=== PATIENT | male | born 1955 | race Caucasian/White ===

== ENCOUNTER 2017-12-24 16:11 | Observation (INO) ==
[2017-12-24 16:24] VITALS: TEMP 97.5
--- NOTE | 2017-12-24 20:05 | ED ---
HPI General Chief complaint: Neuro Symptoms/Deficit Stated complaint: [facility] Time Seen by Provider: 12/24/17 19:31 History of Present Illness HPI narrative: 62-year-old male with a history of HTN, hypothyroidism, DM, migraines, brain aneurysm s/p stent placement presents to the ED for evaluation of possible stroke. The patient states that he started having dizziness . Describes it as feeling off balance. States that this dizziness has been constant since then however he does have intermittent exacerbations of this dizziness and instability. States that he has had 4-5 falls due to the dizziness, states he has been able to catch himself or landed on something soft and has not injured himself. States that he [facility] this [facility] and they did blood work, chest x-ray and brain MRI. States that he had the MRI done yesterday and was called today and told that the results showed he had a stroke. States [facility] by the [facility] to come [facility] for evaluation of these findings. States that he has had a few migraines this week however they are his typical migraines. He denies any chest pain, abdominal pain, nausea, vomiting, diarrhea. He has numbness and tingling in his hands and feet which is chronic due to diabetic neuropathy. States that he felt as though he had weakness in his right arm last week however this has resolved. He states he has had dyspnea on exertion for the past 6 months that he has been seen for as an outpatient. No other complaints. Related Data Home Medications Medication Instructions Recorded Confirmed aspirin 325 mg PO DAILY 12/24/17 12/24/17 insulin aspart U-100 [Novolog 12 unit SUBCUT BID 12/24/17 12/24/17 PenFill U-100 Insulin] levothyroxine 137 mcg PO DAILY 12/24/17 12/24/17 lisinopril 40 mg PO DAILY 12/24/17 12/24/17 metformin 1,000 mg PO BID 12/24/17 12/24/17 Allergies Allergy/AdvReac Type Severity Reaction Status Date / Time ciprofloxacin Allergy Severe Hives Unverified 12/24/17 16:31 egg Allergy Severe Shortness Unverified 12/24/17 16:31 of Breath grass pollen Allergy Severe difficulty Unverified 12/24/17 16:31 breathing sneezing and itchy eyes stuffed nose Influenza Virus Vaccines Allergy Severe ALLERGIC Unverified 12/24/17 16:31 TO EGGS beta-carotene Allergy Intermediate nosebleeds, Unverified 12/24/17 16:31 very bad diarrhea vitamins A and D Allergy Intermediate nosebleeds, Unverified 12/24/17 16:31 very bad diarrhea ARTIFICIAL SWEETENERS Allergy Severe INSOMNIA, Uncoded 12/24/17 16:31 DYSPNEA Review of Systems ROS: all other systems reviewed are negative [facility] Medical History Medical History Breast cancer in male (Acute) Depression (Acute) Diabetes (Acute) GERD (gastroesophageal reflux disease) (Acute) Hypothyroidism (Acute) Liver disease (Acute) Migraines (Acute) Sleep apnea (Acute) Social History Social History Substance History: No History of Abuse Smoking Status: Never smoker How Often Do You Have a Drink Containing Alcohol: Never Recent Travel in [facility] within the Last 8 Weeks: No Recent Out of Country Travel within the Last 8 Weeks: No Immunization History Tetanus Immunization: >5 Years Exam Narrative Exam Narrative: GENERAL: Well-nourished and well-developed pleasant patient in no acute distress who is nontoxic appearing. SKIN: Warm and dry. HEAD: Normocephalic and atraumatic. EYES: No injection, drainage, or hyphema noted. PERRLA. EOMI. ENT: No nasal drainage noted. Oropharynx is clear and the TMs are normal with good landmarks. NECK: Supple and the trachea is midline. CARDIOVASCULAR: Regular rate and rhythm. RESPIRATORY: Breath sounds are equal bilaterally with no accessory muscle use, wheezing, rhonchi, or crackles. GASTROINTESTINAL: Abdomen is soft, non-tender, and nondistended. MUSCULOSKELETAL: No obvious deformities, swelling, cyanosis, or ecchymosis is present throughout the upper and lower extremities. Patient has full range of motion without any signs of neurovascular compromise. Distal pulses are 2+ throughout. Strength 5/5 upper and lower extremities and equal bilaterally. NEUROLOGICAL: Awake, alert, and oriented. Normal speech. Patient noted to lose his balance and fall to the left twice while walking only 15 feet. Cranial nerves are grossly intact. Course Initial Documented Vital Signs Temperature 97.5 F L 12/24/17 16:22 Pulse Rate 81 12/24/17 16:22 Respiratory Rate 22 12/24/17 16:22 Blood Pressure 139/67 12/24/17 16:22 Pulse Oximetry 98 12/24/17 16:22 Last Documented Vital Signs Temperature 97.5 F L 12/24/17 16:22 Pulse Rate 86 12/24/17 22:22 Respiratory Rate 19 12/24/17 22:22 Blood Pressure 141/67 H 12/24/17 22:22 Pulse Oximetry 96 12/24/17 22:22 Medical Decision Making MDM Narrative Medical decision making narrative: 62-year-old male presents to the emergency department for evaluation of dizziness and possible stroke. Patient is afebrile , vital signs are stable. Patient had outpatient workup for dizziness by his PCP at the [facility], had an MRI yesterday and told that it showed stroke and to come to the emergency department. No focal neurologic deficits. Patient does not have any of these records with him and we are unable to obtain them at this time as it is 8:00 at night. IV access is obtained, labs have been drawn and sent. Patient is placed on cardiac telemetry and pulse oximetry monitoring. MRI of brain ordered and is pending. CBC shows mild anemia with hemoglobin 12.8, hematocrit 36.2 and thrombocytopenia with platelets 127. Coags are unremarkable. CMP is unremarkable. Troponin is less than 0.02. Chest x-ray is negative. Patient was initially sent for MRI however per patient he has a coil and a stent in his aneurysm and the card that he presented is only for his coil. Per radiologist he is not authorized to have an MRI until the records are obtained from the [facility] regarding his aneurysm stent. Therefore head CT has been ordered instead. Patient will be admitted for stroke workup. I spoke with Dr. Mckenzie [facility] who accepts patient to his service. Medical Screen Exam Complete: Yes Emergency Medical Condition: Yes Differential Diagnosis Differential Diagnosis: CVA versus intracranial hemorrhage versus electrolyte abormality Lab Data Result diagrams: 12/24/17 20:20 12/24/17 20:20 Lab Results 12/24/17 12/24/17 12/24/17 Range/Units 20:20 20:20 20:20 WBC 4.7 (4.0-11.0) th/mm3 RBC 3.79 L (4.50-5.90) mil/mm3 Hgb 12.8 L (13.0-17.0) gm/dL Hct 36.2 L (39.0-51.0) % MCV 95.5 (80.0-100.0) fL MCH 33.8 (27.0-34.0) pg MCHC 35.4 (32.0-36.0) % RDW 15.1 (11.6-17.2) % Plt Count 127 L (150-450) th/mm3 MPV 8.2 (7.0-11.0) fL Neut % (Auto) 56.5 (16.0-70.0) % Lymph % (Auto) 30.2 (9.0-44.0) % Carroll % (Auto) 9.0 H (0.0-8.0) % Eos % (Auto) 3.1 (0.0-4.0) % Baso % (Auto) 1.2 (0.0-2.0) % Neut # (Auto) 2.7 (1.8-7.7) th/mm3 Lymph # (Auto) 1.4 (1.0-4.8) th/mm3 Carroll # (Auto) 0.4 (0.0-0.9) th/mm3 Eos # (Auto) 0.1 (0.0-0.4) th/mm3 Baso # (Auto) 0.1 (0.0-0.2) th/mm3 WBC Differential . Differential Comment Auto diff final PT 11.4 (9.8-11.6) sec INR 1.1 Ratio APTT 29.4 (23.4-31.7) sec Sodium 145 (136-145) meq/L Potassium 3.6 (3.5-5.1) meq/L Chloride 111 H (98-107) meq/L Carbon Dioxide 27.0 (21.0-32.0) meq/L Anion Gap 7 (5-15) meq/L BUN 6 L (7-18) mg/dL Creatinine 0.78 (0.60-1.30) mg/dL Estimated GFR Greater than 89 (>89) mL/min Random Glucose 158 H (74-106) mg/dL Calcium 8.8 (8.5-10.1) mg/dL Total Bilirubin 0.7 (0.2-1.0) mg/dL AST 62 H (15-37) U/L ALT 39 (12-78) U/L Alkaline Phosphatase 115 (45-117) U/L Total Creatine Kinase 87 (39-308) U/L Troponin I Less than 0.02 L (0.02-0.05) ng/mL Total Protein 8.0 (6.4-8.2) g/dL Albumin 3.4 (3.4-5.0) g/dL Imaging Data Radiologist's impression: Chest X-Ray 12/24/17 20:03 CONCLUSION: No evidence of acute cardiopulmonary disease. Head CT 12/24/17 21:45 CONCLUSION: 1. Negative noncontrast head CT. . Discharge Plan Discharge Disposition Patient Disposition: 30 Still Patient Discharge Details Diagnosis: Dizziness Physicians Team ED Provider: Giovanni De La Fuente ED Midlevel Provider: Yojana [place] Primary Care Provider: [facility] /Orders / Referrals /Forms Prescriptions: No Action aspirin 325 mg Tablet 325 mg PO DAILY RF: 0 metformin 1,000 mg Tablet 1,000 mg PO BID RF: 0 insulin aspart U-100 [Novolog PenFill U-100 Insulin] 100 unit/mL Cartridge 12 unit SUBCUT BID RF: 0 levothyroxine 137 mcg Capsule 137 mcg PO DAILY RF: 0 lisinopril 40 mg PO DAILY RF: 0 Discharge Interventions Interventions: Vital Signs Last Done: 12/24/17 22:22 Status ED Status: With Doctor
--- NOTE | 2017-12-24 20:25 | XR ---
EXAM DATE: 12/24/2017 8:21 PM EST AGE/SEX: 62 years / Male INDICATIONS: Shortness of breath CLINICAL DATA: This is the patient's initial encounter. Patient reports that signs and symptoms have been present for 1 week and indicates a pain score of 0/10. MEDICAL/SURGICAL HISTORY: None. None. COMPARISON: No prior exams available for comparison. FINDINGS: A single AP view of the chest demonstrates the lungs to be symmetrically aerated without evidence of mass, infiltrate or effusion. The cardiomediastinal contours are unremarkable. Osseous structures a re intact. CONCLUSION: No evidence of acute cardiopulmonary disease. Electronically signed by: Braydon Young MD 12/24/2017 8:24 PM EST
[2017-12-24 20:35] LABS: Baso # (Auto) 0.1 th/mm3 (0.0-0.2); Baso % (Auto) 1.2 % (0.0-2.0); Eos # (Auto) 0.1 th/mm3 (0.0-0.4); Eos % (Auto) 3.1 % (0.0-4.0); Hematocrit 36.2 % (39.0-51.0); Hemoglobin 12.8 gm/dL (13.0-17.0); Lymph # (Auto) 1.4 th/mm3 (1.0-4.8); Lymph % (Auto) 30.2 % (9.0-44.0); Mean Corpuscular HGB Conc 35.4 % (32.0-36.0); Mean Corpuscular Hemoglobin 33.8 pg (27.0-34.0); Mean Corpuscular Volume 95.5 fL (80.0-100.0); Mean Platelet Volume 8.2 fL (7.0-11.0); Mono # (Auto) 0.4 th/mm3 (0.0-0.9); Neut # (Auto) 2.7 th/mm3 (1.8-7.7); Neut % (Auto) 56.5 % (16.0-70.0); Platelet Count 127 th/mm3 (150-450); Red Blood Count 3.79 mil/mm3 (4.50-5.90); Red Cell Distribution Width 15.1 % (11.6-17.2); White Blood Count 4.7 th/mm3 (4.0-11.0)
[2017-12-24 20:47] LABS: Activated Partial Thrombo Time 29.4 sec (23.4-31.7); INR 1.1 Ratio; Prothrombin Time 11.4 sec (9.8-11.6)
[2017-12-24 21:05] LABS: Albumin 3.4 g/dL (3.4-5.0); Anion Gap 7 meq/L (5-15); Aspartate Aminotransferase 62 U/L (15-37); Blood Urea Nitrogen 6 mg/dL (7-18); Calcium 8.8 mg/dL (8.5-10.1); Chloride 111 meq/L (98-107); Glomerular Filtration Rate Greater Than 89 mL/min (>89); Glucose,Random 158 mg/dL (74-106); Potassium 3.6 meq/L (3.5-5.1); Sodium 145 meq/L (136-145)
[2017-12-24 21:10] LABS: Alanine Aminotransferase 39 U/L (12-78); Alkaline Phosphatase 115 U/L (45-117)
[2017-12-24 21:14] LABS: Creatine Kinase 87 U/L (39-308)
--- NOTE | 2017-12-24 22:18 | CT ---
EXAM DATE: 12/24/2017 10:11 PM EST AGE/SEX: 62 years / Male INDICATIONS: Right sided cephalgia, dizziness. CLINICAL DATA: This is the patient's initial encounter. Patient reports that signs and symptoms have been present for 1 day and indicates a pain score of 7/10. MEDICAL/SURGICAL HISTORY: Carcinoma, breast. Gastroesophageal reflux disease. Liver disease. Non e. RADIATION DOSE: 56.35 CTDI (mGy) COMPARISON: No prior exams available for comparison. TECHNIQUE: CT of the head without contrast. Using automated exposure control and adjustment of the mA and/or kV according to patient size, radiation dose was kept as low as reasonably achievable to ob tain optimal diagnostic quality images. DICOM format image data is available electronically for revi ew and comparison. FINDINGS: Cerebrum: The ventricles are normal for age. No evidence of midline shift, mass lesion, hemorrhage or acute infarction. No extraaxial fluid collections are seen. Posterior Fossa: The cerebellum and brainstem are intact. The 4th ventricle is midline. The cerebe llopontine angle is unremarkable. Extracranial: The visualized portion of the orbits is intact. Skull: The calvaria is intact. No evidence of skull fracture. CONCLUSION: 1. Negative noncontrast head CT. . Electronically signed by: Nehemias Hernandez MD 12/24/2017 10:17 PM EST
[2017-12-24] MEDS ORDERED: Insulin NovoLOG Aspart Correctional Sugar Inj SQ PRN (22:58)
[2017-12-24] MEDS ORDERED: Dextrose 50% in Water 50 ML Vial IV.PUSH PRN (22:58)
[2017-12-25 04:24] LABS: Amphetamine Screen,Urine Neg (Neg); Barbiturate Screen,Urine Neg (Neg); Cannabinoid Screen,Urine Neg (Neg); Cocaine Screen,Urine Neg (Neg)
[2017-12-25 04:26] LABS: Opiate Screen,Urine Neg (Neg)
--- NOTE | 2017-12-25 05:43 | P.HPIM ---
History of Present Illness Primary Care Physician: [facility] History of Present Illness: 62-year-old transgender male (biologic female) with history of hypertension, hypothyroidism, diabetes mellitus, migraines, brain aneurysm status post stent who presents with a 2-week history of intermittent right-sided weakness, feeling off balance, falling towards the right. He denies any fevers, chills, chest pain, shortness of breath. He was seen by his primary care last week, had an MRI reportedly done on 12/23, and was called by primary care on 12/24 to inform him that MRI was positive for stroke and he should present to ER. We do not have results of MRI at this time. Patient reports that right-sided weakness has resolved, however still feels that he gets this intermittently. Patient takes angiogenic hormones, however over the past week has not been taking this secondary to symptoms of feeling off balance. Review of Systems All other systems reviewed negative except as stated in HPI PMFSH - History History Provided By: Patient - Medical History Medical History: Medical History (Last Updated 12/25/17 @ 05:41 by Terrence Mckenzie MD) Breast cancer in male Depression Diabetes GERD (gastroesophageal reflux disease) Hypothyroidism Liver disease Migraines Sleep apnea Venous insufficiency Venous insufficiency (chronic) (peripheral) - Surgical History Surgical History: Surgical History (Last Reviewed 12/25/17 @ 05:37 by Terrence Mckenzie MD) History of bilateral tubal ligation History of cholecystectomy - Family History Family History: Family History (Last Updated 12/25/17 @ 05:36 by Terrence Mckenzie MD) Father Trigeminal neuralgia Mother Diabetes - Social History I have reviewed the patient's Social History: Yes - Tobacco History Smoking Status: Never smoker - Alcohol History How Often Do You Have a Drink Containing Alcohol: Never - Substance Use History Substance History: No History of Abuse - Travel History Recent Travel in the [place] Within the Last 8 Weeks: No Recent Travel Out of the Country Within the Last 8 Weeks: No - Immunization History Tetanus Immunization: >5 Years Medications and Allergies Active Medications: Active Medications Aspirin (Aspirin Chew) 81 mg PO DAILY YUSRA Dextrose (D50w Vial) 50 ml IV.PUSH UNSCH PRN PRN Reason: per Hypoglycemic Protocol Glucagon (Glucagon Inj) 1 mg OTHER UNSCH PRN PRN Reason: per Hypoglycemic Protocol Insulin Aspart (Novolog Insulin Correctional Sugar Inj) 0 unit SQ ACHS PRN; Protocol PRN Reason: Per Protocol Sodium Chloride (Ns Flush) 2 ml IV.FLUSH PRN PRN PRN Reason: FLUSH AFTER USING IV ACCESS Allergies Allergy/AdvReac Type Severity Reaction Status Date / Time ciprofloxacin Allergy Severe Hives Unverified 12/24/17 16:31 egg Allergy Severe Shortness Unverified 12/24/17 16:31 of Breath grass pollen Allergy Severe difficulty Unverified 12/24/17 16:31 breathing sneezing and itchy eyes stuffed nose Influenza Virus Vaccines Allergy Severe ALLERGIC Unverified 12/24/17 16:31 TO EGGS beta-carotene Allergy Intermediate nosebleeds, Unverified 12/24/17 16:31 very bad diarrhea vitamins A and D Allergy Intermediate nosebleeds, Unverified 12/24/17 16:31 very bad diarrhea ARTIFICIAL SWEETENERS Allergy Severe INSOMNIA, Uncoded 12/24/17 16:31 DYSPNEA Home Medications Medication Instructions Recorded Confirmed Type aspirin 325 mg PO DAILY 12/24/17 12/24/17 History insulin aspart U-100 [Novolog 12 unit SUBCUT BID 12/24/17 12/24/17 History PenFill U-100 Insulin] levothyroxine 137 mcg PO DAILY 12/24/17 12/24/17 History lisinopril 40 mg PO DAILY 12/24/17 12/24/17 History metformin 1,000 mg PO BID 12/24/17 12/24/17 History Exam Vital signs: Vital Signs 12/24/17 16:22 12/24/17 19:33 12/24/17 20:03 Temperature 97.5 F L Pulse Rate 81 80 Respiratory Rate 22 19 Blood Pressure 139/67 153/72 H Pulse Oximetry 98 99 96 12/24/17 22:22 12/25/17 02:38 12/25/17 04:55 Temperature Pulse Rate 86 83 Respiratory Rate 19 16 Blood Pressure 141/67 H 154/68 H 140/67 Pulse Oximetry 96 95 Intake & Output 12/24/17 12/24/17 12/25/17 06:59 18:59 06:59 Weight 118.388 kg Narrative: GENERAL: Patient sitting up in bed. Sleeping, wakes up for exam. Alert and oriented x3. SKIN: Warm and dry. HEAD: Atraumatic. Normocephalic. EYES: Pupils equal and round. No scleral icterus. No injection or drainage. ENT: No nasal bleeding or discharge. Mucous membranes pink and moist. NECK: Trachea midline. No JVD. CARDIOVASCULAR: Regular rate and rhythm. RESPIRATORY: No accessory muscle use. Clear to auscultation. Breath sounds equal bilaterally. GASTROINTESTINAL: Abdomen soft, non-tender, nondistended. Hepatic and splenic margins not palpable. MUSCULOSKELETAL: Extremities without clubbing, cyanosis, or edema. No obvious deformities. NEUROLOGICAL: Awake and alert. No obvious cranial nerve deficits. Motor grossly within normal limits. Five out of 5 muscle strength in the arms and legs. There is no unilateral weakness. Normal speech. PSYCHIATRIC: Appropriate mood and affect; insight and judgment normal. Results - Labs CBC & Chem 7: 12/24/17 20:20 12/24/17 20:20 Labs: Short CBC 12/24/17 Range/Units 20:20 WBC 4.7 (4.0-11.0) th/mm3 Hgb 12.8 L (13.0-17.0) gm/dL Hct 36.2 L (39.0-51.0) % Plt Count 127 L (150-450) th/mm3 BMP 12/24/17 20:20 Sodium 145 Potassium 3.6 Chloride 111 H Carbon Dioxide 27.0 BUN 6 L Creatinine 0.78 Calcium 8.8 Cardiac Enzymes 12/24/17 Range/Units 20:20 Total Creatine Kinase 87 (39-308) U/L Troponin I Less than 0.02 L (0.02-0.05) ng/mL Liver Function 12/24/17 Range/Units 20:20 Total Bilirubin 0.7 (0.2-1.0) mg/dL AST 62 H (15-37) U/L ALT 39 (12-78) U/L Alkaline Phosphatase 115 (45-117) U/L Albumin 3.4 (3.4-5.0) g/dL - Imaging Impressions Chest X-Ray 12/24/17 20:03 CONCLUSION: No evidence of acute cardiopulmonary disease. Head CT 12/24/17 21:45 CONCLUSION: 1. Negative noncontrast head CT. . Caprini VTE Risk Assessment Caprini VTE Risk Assessment: Moderate/High Risk (score >= 2) Caprini Risk Assessment Model: Point Value = 1 Point Value = 2 Point Value = 3 Point Value = 5 Age 41-60 Minor surgery BMI > 25 kg/m2 Swollen legs Varicose veins or History of unexplained or recurrent spontaneous Oral contraceptives or hormone replacement Sepsis (< 1 month) Serious lung disease, including pneumonia (< 1 month) Abnormal pulmonary function Acute myocardial infarction Congestive heart failure (< 1 month) History of inflammatory bowel disease Medical patient at bed rest Age 61-74 Arthroscopic surgery Major open surgery (> 45 min) Laparoscopic surgery (> 45 min) Malignancy Confined to bed (> 72 hours) Immobilizing plaster cast Central venous access Age >= 75 History of VTE Family history of VTE Factor V Leiden Prothrombin [id number] Lupus anticoagulant Anticardiolipin antibodies Elevated serum homocysteine Heparin-induced thrombocytopenia Other congenital or acquired thrombophilia Stroke (< 1 month) Elective arthroplasty Hip, pelvis, or leg fracture Acute spinal cord injury (< 1 month) Prophylaxis Regimen: Total Risk Factor Score Risk Level Prophylaxis Regimen 0-1 Low Early ambulation 2 Moderate Order ONE of the following: *Sequential Compression Device (SCD) *Heparin 5000 units SQ BID 3-4 Higher Order ONE of the following medications: *Heparin 5000 units SQ TID *Enoxaparin/Lovenox 40 mg SQ daily (WT < 150 kg, CrCl > 30 mL/min) *Enoxaparin/Lovenox 30 mg SQ daily (WT < 150 kg, CrCl > 10-29 mL/min) *Enoxaparin/Lovenox 30 mg SQ BID (WT < 150 kg, CrCl > 30 mL/min) AND/OR *Sequential Compression Device (SCD) 5 or more Highest Order ONE of the following medications: *Heparin 5000 units SQ TID (Preferred with Epidurals) *Enoxaparin/Lovenox 40 mg SQ daily (WT < 150 kg, CrCl > 30 mL/min) *Enoxaparin/Lovenox 30 mg SQ daily (WT < 150 kg, CrCl > 10-29 mL/min) *Enoxaparin/Lovenox 30 mg SQ BID (WT < 150 kg, CrCl > 30 mL/min) AND *Sequential Compression Device (SCD) Assessment and Plan - Plan //Suspected stroke //Reported right sided weakness With MRI reportedly as outpatient showing acute stroke -Head CT here with no acute findings. -Neuro checks, permissive hypertension. -Check echo, carotid ultrasound. Patient reporting right-sided weakness, however none elicited on exam. -Continue daily aspirin. -Consult neurology. We need to get results of outpatient MRI. //Diabetes mellitus. Chronic. Diabetic diet and insulin sliding scale. A1c pending. //Hypothyroidism. Chronic. Continue home medication. Check TSH. //Hypertension. Chronic. Permissive hypertension. //Mild thrombocytopenia and mild anemia. Uncertain chronicity. Monitor Discussed Condition With: Patient, nurse, ED physician.
[2017-12-25 07:37] LABS: Chol/HDL Ratio 4.93 Ratio; HDL Cholesterol 21.5 mg/dL (40.0-60.0); Thyroid Stimulating Hormone 1.81 uIU/mL (0.358-3.740)
[2017-12-25] MEDS ORDERED: Aspirin 325 MG Tablet PO SCH (09:00)
[2017-12-25] MEDS ORDERED: Levothyroxine 112 MCG Tablet PO SCH (09:00)
--- NOTE | 2017-12-25 09:02 | US ---
EXAM DATE: 12/25/2017 8:59 AM EST AGE/SEX: 62 years / Male INDICATIONS: Transischemic attack. CLINICAL DATA: This is the patient's initial encounter. Patient reports that signs and symptoms have been present for 1 day and indicates a pain score of 0/10. MEDICAL/SURGICAL HISTORY: . Carcinoma, breast. Gastroesophageal reflux disease. Liver disease. None. COMPARISON: . VELOCITY PARAMETERS: ICA/CCA Ratio: Right 1.1 , Left 0.7 ICA: Right 71 cm/sec, Left 59 cm/sec CCA: Right 66 cm/sec, Left 91 cm/sec ECA: Right 72 cm/sec, Left 73 cm/sec Vertebral: Right 23 cm/sec antegrade, Left 44 cm/sec antegrade FINDINGS: Antegrade flow is seen in both vertebral arteries. There is mild atherosclerotic plaquing at the orig in of both ICAs without any significant stenosis. Elevated flow velocities and ICA/CCA ratios have been found to correlate with increased degrees of vessel stenosis, calculated as percentage of diameter relative to a normal segment of distal ICA. CONCLUSION: No evidence for hemodynamically significant stenosis. Electronically signed by: Juan Oliva MD 12/25/2017 9:00 AM EST
[2017-12-25] MEDS ORDERED: Gadobutrol PF 2 MMOL/2 ML Vial (for RAD) IV.SIG ONE (09:10)
--- NOTE | 2017-12-25 09:15 | MR ---
EXAM DATE: 12/25/2017 9:09 AM EST AGE/SEX: 62 years / Male INDICATIONS: CVA. Dizziness. CLINICAL DATA: This is the patient's subsequent encounter. Patient reports that signs and symptoms h ave been present for 2 weeks and indicates a pain score of 0/10. MEDICAL/SURGICAL HISTORY: Carcinoma, breast. Diabetes. Hypertension. GERD. Brain aneurysm. Cholecystectomy. Mastectomy, bilateral. Tubal ligation. Tonsillectomy. ICA stent and coil. COMPARISON: [facility] – [place], CT HEAD W/O CONTRAST, 12/24/2017. . TECHNIQUE: Multiplanar, multisequence examination of the brain was performed without and with 12 ml G adavist (gadobutrol) contrast as a single exam dose. FINDINGS: Cerebrum: The ventricles are normal for age. No evidence of midline shift, mass lesion, hemorrhage or acute infarction. No extraaxial fluid collections are seen. The pituitary gland and suprasellar cistern are normal in configuration. White Matter: No significant signal abnormalities are seen in the white matter. Posterior Fossa: The cerebellum and brainstem are intact. The 4th ventricle is midline. The cerebel lopontine angle is unremarkable. The cerebellar tonsils are normal in position. Diffusion Imaging: No focal areas of restricted diffusion are seen. No evidence of acute infarction . Extracranial: The visualized portions of the orbits and paranasal sinuses are unremarkable. Post Contrast: No abnormal areas of parenchymal or dural enhancement. No evidence of blood-brain ba rrier breakdown. CONCLUSION: Negative MR Brain with and without contrast. Electronically signed by: Fili Varghese MD 12/25/2017 9:13 AM EST
--- NOTE | 2017-12-25 09:29 | P.CONNEU ---
History of Present Illness Service: Neurology Primary Care Provider: [facility] Chief Complaint: Stroke History of Present Illness: 62-year-old male admitted for possible stroke. States felt lightheaded off balance for the past 2 weeks states he was told by the [place] that he had a small stroke. Denies any focal weakness chronic numbness in his legs from diabetes as well as swelling. He is a cane for ambulation. Goes to [facility] for his medical care. Denies any head or neck trauma. No radicular symptoms. He lives with his Review of Systems All other systems reviewed negative except as stated in HPI PMFSH - History History Provided By: Patient - Medical History Medical History: Medical History (Last Reviewed 12/25/17 @ 08:30 by Juliana Denney) Breast cancer in male Depression Diabetes GERD (gastroesophageal reflux disease) Hypothyroidism Liver disease Migraines Sleep apnea Venous insufficiency Venous insufficiency (chronic) (peripheral) - Surgical History Surgical History: Surgical History (Last Reviewed 12/25/17 @ 08:30 by Juliana Denney) History of bilateral tubal ligation History of cholecystectomy - Family History Family History: Family History (Last Updated 12/25/17 @ 05:36 by Terrence Mckenzie MD) Father Trigeminal neuralgia Mother Diabetes - Tobacco History Smoking Status: Never smoker - Alcohol History How Often Do You Have a Drink Containing Alcohol: Never - Substance Use History Substance History: No History of Abuse - Travel History Recent Travel in the [place] Within the Last 8 Weeks: No Recent Travel Out of the Country Within the Last 8 Weeks: No - Immunization History Tetanus Immunization: >5 Years Medications and Allergies Active Medications: Active Medications Aspirin (Aspirin) 325 mg PO DAILY YUSRA Dextrose (D50w Vial) 50 ml IV.PUSH UNSCH PRN PRN Reason: per Hypoglycemic Protocol Glucagon (Glucagon Inj) 1 mg OTHER UNSCH PRN PRN Reason: per Hypoglycemic Protocol Insulin Aspart (Novolog Insulin Correctional Sugar Inj) 0 unit SQ ACHS PRN; Protocol PRN Reason: Per Protocol Levothyroxine Sodium (Synthroid) 112 mcg PO DAILY@0600 YUSRA Levothyroxine Sodium (Synthroid) 25 mcg PO DAILY@0600 YUSRA Sodium Chloride (Ns Flush) 2 ml IV.FLUSH PRN PRN PRN Reason: FLUSH AFTER USING IV ACCESS Allergies Allergy/AdvReac Type Severity Reaction Status Date / Time ciprofloxacin Allergy Severe Hives Unverified 12/24/17 16:31 egg Allergy Severe Shortness Unverified 12/24/17 16:31 of Breath grass pollen Allergy Severe difficulty Unverified 12/24/17 16:31 breathing sneezing and itchy eyes stuffed nose Influenza Virus Vaccines Allergy Severe ALLERGIC Unverified 12/24/17 16:31 TO EGGS beta-carotene Allergy Intermediate nosebleeds, Unverified 12/24/17 16:31 very bad diarrhea vitamins A and D Allergy Intermediate nosebleeds, Unverified 12/24/17 16:31 very bad diarrhea ARTIFICIAL SWEETENERS Allergy Severe INSOMNIA, Uncoded 12/24/17 16:31 DYSPNEA Home Medications Medication Instructions Recorded Confirmed Type aspirin 325 mg PO DAILY 12/24/17 12/24/17 History insulin aspart U-100 [Novolog 12 unit SUBCUT BID 12/24/17 12/24/17 History PenFill U-100 Insulin] levothyroxine 137 mcg PO DAILY 12/24/17 12/24/17 History lisinopril 40 mg PO DAILY 12/24/17 12/24/17 History metformin 1,000 mg PO BID 12/24/17 12/24/17 History Exam Vital signs: Vital Signs 12/24/17 16:22 12/24/17 19:33 12/24/17 20:03 Temperature 97.5 F L Pulse Rate 81 80 Respiratory Rate 22 19 Blood Pressure 139/67 153/72 H Pulse Oximetry 98 99 96 12/24/17 22:22 12/25/17 02:38 12/25/17 04:55 Temperature Pulse Rate 86 83 Respiratory Rate 19 16 Blood Pressure 141/67 H 154/68 H 140/67 Pulse Oximetry 96 95 Intake & Output 12/24/17 12/25/17 12/25/17 18:59 06:59 18:59 Weight 118.388 kg Narrative: Awake alert oriented x3 obese, follows motor request looks well was using his cell phone with his right hand when he came in to see him smiling visual zelaya full no facial asymmetry able to raise all 4 extremity gravity, no pronator drift, lower extremity bilateral pitting edema bandages on reduce pinprick lower limbs reflexes trace plantarflexion no clonus elicited gait not assessed secondary fall risk - Constitutional no acute distress - Routine HEENT Exam Head: Present: normocephalic Eye: Present: EOMI Results - Labs CBC & Chem 7: 12/24/17 20:20 12/24/17 20:20 Labs: Laboratory Results - last 24 hr 12/24/17 12/24/17 12/24/17 20:20 20:20 20:20 WBC 4.7 RBC 3.79 L Hgb 12.8 L Hct 36.2 L MCV 95.5 MCH 33.8 MCHC 35.4 RDW 15.1 Plt Count 127 L MPV 8.2 Neut % (Auto) 56.5 Lymph % (Auto) 30.2 [place] % (Auto) 9.0 H Eos % (Auto) 3.1 Baso % (Auto) 1.2 Neut # (Auto) 2.7 Lymph # (Auto) 1.4 [place] # (Auto) 0.4 Eos # (Auto) 0.1 Baso # (Auto) 0.1 WBC Differential . Differential Comment Auto diff final PT 11.4 INR 1.1 APTT 29.4 Sodium 145 Potassium 3.6 Chloride 111 H Carbon Dioxide 27.0 Anion Gap 7 BUN 6 L Creatinine 0.78 Estimated GFR Greater than 89 Random Glucose 158 H Calcium 8.8 Total Bilirubin 0.7 AST 62 H ALT 39 Alkaline Phosphatase 115 Total Creatine Kinase 87 Troponin I Less than 0.02 L Total Protein 8.0 Albumin 3.4 Triglycerides Cholesterol LDL Cholesterol, Calc HDL Cholesterol Cholesterol/HDL Ratio TSH Urine Opiates Screen Ur Barbiturates Screen Ur Amphetamines Screen U Benzodiazepines Scrn Urine Cocaine Screen U Cannabinoids Screen 12/25/17 12/25/17 04:00 06:31 WBC RBC Hgb Hct MCV MCH MCHC RDW Plt Count MPV Neut % (Auto) Lymph % (Auto) [place] % (Auto) Eos % (Auto) Baso % (Auto) Neut # (Auto) Lymph # (Auto) [place] # (Auto) Eos # (Auto) Baso # (Auto) WBC Differential Differential Comment PT INR APTT Sodium Potassium Chloride Carbon Dioxide Anion Gap BUN Creatinine Estimated GFR Random Glucose Calcium Total Bilirubin AST ALT Alkaline Phosphatase Total Creatine Kinase Troponin I Total Protein Albumin Triglycerides 275 H Cholesterol 106 L LDL Cholesterol, Calc 30 HDL Cholesterol 21.5 L Cholesterol/HDL Ratio 4.93 TSH 1.810 Urine Opiates Screen Neg Ur Barbiturates Screen Neg Ur Amphetamines Screen Neg U Benzodiazepines Scrn Neg Urine Cocaine Screen Neg U Cannabinoids Screen Neg - Imaging Impressions Chest X-Ray 12/24/17 20:03 CONCLUSION: No evidence of acute cardiopulmonary disease. Head CT 12/24/17 21:45 CONCLUSION: 1. Negative noncontrast head CT. . Carotid Doppler Study 12/25/17 00:00 CONCLUSION: No evidence for hemodynamically significant stenosis. Head MRI 12/25/17 00:00 CONCLUSION: Negative MR Brain with and without contrast. Review/Management - Diagnosis (1) Dizziness Code(s): R42 - Dizziness and giddiness Status: Acute Current Visit: Yes - Review/Management Plan: MRI brain scan negative for any acute stroke. Symptoms ongoing for the past 2 weeks. Carotid ultrasound negative. Recommendation Consider orthostatic blood pressures, would consider CT chest to exclude pulmonary embolus although suspect low yield ; defer to the hospitalist Can be discharged from neurologic standpoint [facility] for further evaluation of dizziness, may need to see ENT Behavioral modification and risk factor reduction. Weight loss, blood pressure control, blood sugar control, lipid control. Exercise
--- NOTE | 2017-12-25 10:10 | ECG ---
Date Performed: 12/25/2017 Time Performed: 04:01:35 PTAGE: 62 years EKG: Sinus rhythm POSSIBLE LEFT ATRIAL ENLARGEMENT INCOMPLETE RIGHT BUNDLE BRANCH BLOCK PROLONGED QT INTERVAL Since th e previous tracing, no significant change noted ABNORMAL ECG PREVIOUS TRACING : 11/06/2007 12.58 DOCTOR: Khang Stuart Interpretating Date/Time 12/25/2017 10:08:56
[2017-12-25 12:12] VITALS: BP 140/74; PULSE 84; RESP 20; O2SAT 96
[2017-12-25] MEDS ORDERED: Gabapentin 300 MG Capsule PO SCH (13:35)
[2017-12-25] MEDS ORDERED: Topiramate 25 MG Tablet PO SCH (14:00)
--- NOTE | 2017-12-25 14:25 | P.PNADD ---
Addendum to Inpatient Note Reason for Addendum: Additional Documentation Additional information: Patient seen and examined. He denies any further neurological symptoms. Discussed with RN. Has been ambulating to the bathroom without any issues. Appreciate input from neurology. GENERAL: This is a well-nourished, well-developed patient, in no apparent distress. CARDIOVASCULAR: Normal rate and regular rhythm without murmurs, gallops, or rubs. RESPIRATORY: Good respiratory efforts. Breath sounds equal and clear to auscultation bilaterally. GASTROINTESTINAL: Abdomen soft, non-tender, non-distended. Normal active bowel sounds MUSCULOSKELETAL: Extremities without cyanosis, or edema. NEURO: Alert & Oriented x4 to person, place, time, situation. Moves all ext x4 PSYCH: Appropriate mood and affect. Patient admitted to rule out stroke. Reports of imaging from the [place] concerning for stroke. However repeat MRI here is negative for acute stroke. The patient' s symptoms completely resolved. He was evaluated by neurology. Orthostatics reviewed, unremarkable. Carotids imaging negative. The patient is deemed stable for discharge home to [facility] Discharge patient to home Condition on discharge: Improved Regular Diet as tolerated Ad Holly activity Rx written:None Follow-up with primary care physician
[2017-12-25 17:05] LABS: Hemoglobin A1c 7.7 % (4.3-6.0)
[2017-12-25] MEDS ORDERED: Carvedilol 12.5 MG Tablet PO SCH (21:00)
[2017-12-26] MEDS ORDERED: Tolterodine Tartrate LA 4 MG Capsule PO SCH (09:00)
[2017-12-26] MEDS ORDERED: Lisinopril 20 MG Tablet PO SCH (09:00)
[2017-12-26] MEDS ORDERED: Furosemide 40 MG Tablet PO SCH (09:00)
[2017-12-26] MEDS ORDERED: Venlafaxine XR 75 MG Capsule PO SCH (09:00)
[2017-12-26] MEDS ORDERED: Mirtazapine 15 MG Tablet PO SCH (09:00)
--- NOTE | 2017-12-26 10:58 | ECHRPT ---
Indication: CVA/TIA CONCLUSIONS Normal left ventricular size. Mild concentric left ventricular hypertrophy. The left ventricular systolic function is low normal with an estimated ejection fraction in the rang e of 50- 55%. Severe mitral annular calcification. Mild mitral valve regurgitation. The estimated pulmonary arterial pressure is 38 mmHg. There is mild tricuspid valve regurgitation. BP: / HR: Rhythm: MEASUREMENTS (Male / Female) Normal Values Technical Quality: 2D ECHO LV Diastolic Diameter PLAX 4.7 cm 4.2 - 5.9 / 3.9 - 5.3 cm LV Systolic Diameter PLAX 3.2 cm IVS Diastolic Thickness 1.7 cm 0.6 - 1.0 / 0.6 - 0.9 cm LVPW Diastolic Thickness 1.7 cm 0.6 - 1.0 / 0.6 - 0.9 cm LV Relative Wall Thickness 0.7 RV Internal Dim ED PLAX 2.6 cm LVOT Diameter 2.1 cm Aortic Root Diameter 3.4 cm LV Ejection Fraction MOD BP 41.0 % >= 55 % LV Ejection Fraction MOD 4C 55.0 % LV Ejection Fraction 4C AL 55.8 % LV Ejection Fraction MOD 2C 32.5 % LV Ejection Fraction 2C AL 34.1 % M-MODE Aortic Root Diameter MM 2.8 cm LA Systolic Diameter MM 5.2 cm LA Ao Ratio MM 1.9 AV Cusp Separation MM 2.1 cm DOPPLER AV Peak Velocity 194.0 cm/s AV Peak Gradient 15.1 mmHg LVOT Peak Velocity 127.0 cm/s LVOT Peak Gradient 6.5 mmHg AV Area Cont Eq pk 2.3 cm MV Peak Velocity 143.0 cm/s MV Peak Gradient 8.2 mmHg MV Mean Velocity 91.4 cm/s MV Mean Gradient 4.0 mmHg MV Area PHT 3.9 cm Mitral E Point Velocity 139.0 cm/s Mitral A Point Velocity 130.0 cm/s Mitral E to A Ratio 1.1 LV E' Lateral Velocity 9.6 cm/s Mitral E to LV E' Lateral Ratio 14.6 LV E' Septal Velocity 6.7 cm/s Mitral E to LV E' Septal Ratio 20.7 TR Peak Velocity 262.0 cm/s TR Peak Gradient 27.5 mmHg Right Atrial Pressure 10.0 mmHg Pulmonary Artery Systolic Pressu 37.5 mmHg Right Ventricular Systolic Press 37.5 mmHg PV Peak Velocity 111.0 cm/s PV Peak Gradient 4.9 mmHg FINDINGS LEFT VENTRICLE Normal left ventricular size. Mild concentric left ventricular hypertrophy. The left ventricular systolic function is low normal with an estimated ejection fraction in the rang e of 50- 55%. RIGHT VENTRICLE Normal right ventricular size and systolic function. LEFT ATRIUM The left atrial size is normal. RIGHT ATRIUM The right atrial size is normal. ATRIAL SEPTUM Normal atrial septal thickness without atrial level shunting by limited color doppler interrogation. AORTA The aortic root and proximal ascending aorta are normal in size on limited imaging. MITRAL VALVE Severe mitral annular calcification. Mild mitral valve regurgitation. AORTIC VALVE Trileaflet aortic valve. No aortic valve stenosis or regurgitation. TRICUSPID VALVE The estimated pulmonary arterial pressure is 38 mmHg. There is mild tricuspid valve regurgitation. PULMONARY VALVE No pulmonary valve regurgitation or stenosis. VESSELS The inferior vena cava is normal in size. PERICARDIUM No pericardial effusion. Jean-Paul Pyle MD, FACC, [facility] [place] (Electronically Signed) Final Date:26 December 2017 10:57
== END 2017-12-25 16:17 | disposition home or self-care (01) ==
LOC: EDSEX → NEPC 16:11 → NEDA 16:11 → NEDH 12-25 02:57 → NEPHCDU 12-25 13:12
PROVIDERS: ADMIT Family Medicine; ATTEND Family Medicine

== ENCOUNTER 2018-01-17 07:13 | Inpatient (IN) ==
[2018-01-17] MEDS ORDERED: Sod Chloride 0.9% Inj 1,000 ML IV.SIG SCH ×2 (07:45→09:00)
[2018-01-17 08:13] LABS: Baso % (Auto) 0.6 % (0.0-2.0); Eos # (Auto) 0.1 th/mm3 (0.0-0.4); Eos % (Auto) 0.8 % (0.0-4.0); Hematocrit 27.9 % (39.0-51.0); Hemoglobin 9.1 gm/dL (13.0-17.0); Lymph # (Auto) 1.9 th/mm3 (1.0-4.8); Lymph % (Auto) 26.3 % (9.0-44.0); Mean Corpuscular HGB Conc 32.8 % (32.0-36.0); Mean Corpuscular Hemoglobin 33.1 pg (27.0-34.0); Mean Platelet Volume 9.2 fL (7.0-11.0); Mono # (Auto) 0.5 th/mm3 (0.0-0.9); Mono % (Auto) 6.7 % (0.0-8.0); Neut # (Auto) 4.7 th/mm3 (1.8-7.7); Neut % (Auto) 65.6 % (16.0-70.0); Platelet Count 149 th/mm3 (150-450); Red Blood Count 2.76 mil/mm3 (4.50-5.90); White Blood Count 7.2 th/mm3 (4.0-11.0)
--- NOTE | 2018-01-17 08:19 | XR ---
EXAM DATE: 01/17/2018 8:13 AM EST AGE/SEX: 62 years / Male INDICATIONS: Cough CLINICAL DATA: This is the patient's initial encounter. Patient reports that signs and symptoms have been present for 1 day and indicates a pain score of 0/10. MEDICAL/SURGICAL HISTORY: . Carcinoma, breast. Gastroesophageal reflux disease. Liver disease None. COMPARISON: [facility] [place], CHEST 1V SINGLE AP, 12/24/2017. . FINDINGS: A single AP view of the chest demonstrates the lungs to be symmetrically aerated without evidence of mass, infiltrate or effusion. The cardiomediastinal contours are unremarkable. Osseous structures a re intact. CONCLUSION: No acute intrathoracic disease. Stable examination. Electronically signed by: Jose Jaimes MD 01/17/2018 8:18 AM EST
[2018-01-17 08:27] LABS: Activated Partial Thrombo Time 23.3 sec (23.4-31.7); INR 1.3 Ratio; Prothrombin Time 13.4 sec (9.8-11.6)
[2018-01-17 08:29] LABS: D-Dimer 0.93 mg/L FEU (0.00-0.50)
[2018-01-17 08:31] LABS: Alanine Aminotransferase 37 U/L (12-78); Albumin 2.6 g/dL (3.4-5.0); Anion Gap 12 meq/L (5-15); Aspartate Aminotransferase 48 U/L (15-37); Blood Urea Nitrogen 27 mg/dL (7-18); Carbon Dioxide 26.7 meq/L (21.0-32.0); Chloride 101 meq/L (98-107); Glomerular Filtration Rate 59 mL/min (>89); Potassium 4.1 meq/L (3.5-5.1); Sodium 140 meq/L (136-145)
--- NOTE | 2018-01-17 08:46 | ED ---
HPI General Chief complaint: Dizziness Stated complaint: diarrhea/vomitting blood Time Seen by Provider: 01/17/18 07:41 Source: patient Mode of arrival: ambulatory Limitations: no limitations History of Present Illness MD Complaint: Reports generalized weakness Onset (ago): month(s) (1) Duration: intermittent Location: Reports generalized Migration: Reports none Relieving factors: none Exacerbating factors: none Associated symptoms: Reports other (Hemoptysis, onset 6 AM today.) Related Data Home Medications Medication Instructions Recorded Confirmed aspirin 325 mg PO DAILY 12/24/17 01/17/18 insulin aspart U-100 [Novolog 12 unit SUBCUT BID 12/24/17 01/17/18 PenFill U-100 Insulin] levothyroxine 137 mcg PO DAILY 12/24/17 01/17/18 lisinopril 40 mg PO DAILY 12/24/17 01/17/18 metformin 1,000 mg PO BID 12/24/17 01/17/18 amlodipine 2.5 mg PO DAILY 12/25/17 01/17/18 atorvastatin 20 mg PO DAILY 12/25/17 01/17/18 carvedilol 12.5 mg PO BID 12/25/17 01/17/18 furosemide [Lasix] 40 mg PO DAILY 12/25/17 01/17/18 gabapentin 600 mg PO TID 12/25/17 01/17/18 hydroxyzine pamoate 50 mg PO HS PRN 12/25/17 01/17/18 insulin glargine 70 unit SUBCUT DAILY 12/25/17 01/17/18 mirtazapine 30 mg PO DAILY 12/25/17 01/17/18 oxybutynin chloride 15 mg PO DAILY 12/25/17 01/17/18 potassium chloride 20 meq PO DAILY 12/25/17 01/17/18 testosterone 1 packet TRANSDERMAL DAILY 12/25/17 01/17/18 topiramate 25 mg PO DAILY 12/25/17 01/17/18 venlafaxine 150 mg PO DAILY 12/25/17 01/17/18 Allergies Allergy/AdvReac Type Severity Reaction Status Date / Time ciprofloxacin Allergy Severe Hives Verified 01/17/18 07:18 egg Allergy Severe Shortness Verified 01/17/18 07:18 of Breath Influenza Virus Vaccines Allergy Severe ALLERGIC Verified 01/17/18 07:18 TO EGGS shellfish derived Allergy Severe Diarrhea Verified 01/17/18 07:18 Benzodiazepines AdvReac Intermediate Agitation Verified 01/17/18 07:50 diazepam AdvReac Intermediate Agitation Verified 01/17/18 07:50 tramadol AdvReac Intermediate Agitation Verified 01/17/18 07:50 Review of Systems ROS: all other systems reviewed are negative Gastrointestinal Denies abdominal pain, Denies melena, Denies hematochezia, Denies coffee ground emesis, Reports loose stools and Denies hematemesis [facility] Medical History Medical History Breast cancer in male (Acute) Depression (Acute) Diabetes (Acute) GERD (gastroesophageal reflux disease) (Acute) Hypothyroidism (Acute) Liver disease (Acute) Migraines (Acute) Sleep apnea (Acute) Venous insufficiency (Acute) Venous insufficiency (chronic) (peripheral) (Acute) Surgical History Surgical History History of bilateral tubal ligation (Acute) History of cholecystectomy (Acute) Social History Social History Substance History: No History of Abuse Second Hand Smoke Exposure: Yes Smoking Status: Current every day smoker Tobacco Type: Cigarettes How Often Do You Have a Drink Containing Alcohol: Never Recent Travel in [facility] within the Last 8 Weeks: No Recent Out of Country Travel within the Last 8 Weeks: No Immunization History Tetanus Immunization: >5 Years Exam Const General: cooperative, healthy appearing, comfortable, no acute distress, well developed and other (Pale) Orientation: alert, awake and oriented x3 HENMT Head: normal to inspection, normocephalic and atraumatic Mouth: moist mucous membranes abnormal (Dry) Teeth and gingiva: poor dentition Eyes Alignment and Position: alignment normal and position abnormal Conjunctivae: conjunctivae normal Sclera: sclerae normal EOM: EOM intact bilaterally Neck Neck: normal visual inspection and full ROM Chest Chest: normal inspection of the chest Resp Effort & Inspection: normal respiratory effort and able to speak in complete sentences Auscultation: clear to auscultation bilaterally Cardio Rate: regular rate Rhythm: regular rhythm Heart Sounds: other (Hyperdynamic) Other: Hypotensive initially at 99/52. GI Inspection: normal to inspection Palpation: soft and nontender Back/Spine/Pelvis Cervical Spine: cervical ROM normal Thoracic/Lumbar Spine: thoraco-lumbar ROM normal Skin General: no rashes or lesions noted, turgor normal and dry skin Neuro General: alert, awake, oriented x3, moves all extremities and CN's II-XI intact bilaterally Extrem General: normal to inspection and full ROM Psych Appearance: grossly normal Mental Status: mental status grossly normal Speech and Movement: speech and movement normal Mood: congruent mood Affect: normal affect Attitude: cooperative Thought Process: normal Thought Content: normal Judgment: judgment good Course Consultations Consultation #1: Dr. Morales will admit for Dr. Calloway Time: 11:38 Initial Documented Vital Signs Temperature 97.4 F L 01/17/18 07:16 Pulse Rate 94 H 01/17/18 07:16 Respiratory Rate 20 01/17/18 07:16 Blood Pressure 99/52 L 01/17/18 07:16 Pulse Oximetry 98 01/17/18 07:16 Last Documented Vital Signs Temperature 98.1 F 01/17/18 10:54 Pulse Rate 108 H 01/17/18 10:54 Respiratory Rate 19 01/17/18 10:54 Blood Pressure 120/58 L 01/17/18 10:54 Pulse Oximetry 96 01/17/18 10:54 Critical Care Time Critical Care Time: Yes Total Critical Care Time: 60 Attestation: Time to perform other separately billable procedures was not included in the critical care time. My time did not include minutes spent treating any other patients simultaneously or on activities that did not directly contribute to the patient's treatment. The services I provided to this patient were to treat and/or prevent clinically significant deterioration due to hypotension and hemoptysis, hyperglycemia, acute blood loss I provided critical care services requiring my management, as noted below: Chart data review, documentation time, medication orders and management, vital sign assessments/reviewing monitor data, ordering and reviewing lab tests, ordering and interpreting/reviewing x-rays and diagnostic studies, care of the patient and discussion of the patient with the admitting physicians Medical Decision Making MDM Narrative Medical decision making narrative: This patient presents with a chief complaint of hemoptysis. Onset was 6 AM. He has been very weak for the last month. He was actually hospitalized here earlier this month for evaluation of the weakness. However, the hemoptysis just started this morning. He denies any lung symptoms prior to this morning. On exam, he is pale. His systolic blood pressure is 99. This is in a patient who has an underlying medical history of hypertension. He states that he last took his blood pressure medications last night. He is receiving a fluid bolus. His hemoglobin has dropped by 3 g since 12/24. Thus far, his blood pressure has not responded to the IV fluids. I will give him a second fluid bolus and type and cross him for 2 units. D-dimer is elevated. CTA for PE is pending. CT for PE was negative. He was given 12 units of regular insulin because of his sugar of 595. Repeat sugar an hour later was 413. I have ordered an additional 12 units of IV insulin. We are awaiting a callback from the residents for admission. Medical Screen Exam Complete: Yes Emergency Medical Condition: Yes Lab Data Result diagrams: 01/17/18 08:00 01/17/18 08:00 Lab Results 01/17/18 01/17/18 01/17/18 Range/Units 08:00 08:00 08:00 WBC 7.2 (4.0-11.0) th/mm3 RBC 2.76 L (4.50-5.90) mil/mm3 Hgb 9.1 L (13.0-17.0) gm/dL Hct 27.9 L (39.0-51.0) % MCV 101.0 H (80.0-100.0) fL MCH 33.1 (27.0-34.0) pg MCHC 32.8 (32.0-36.0) % RDW 15.0 (11.6-17.2) % Plt Count 149 L (150-450) th/mm3 MPV 9.2 (7.0-11.0) fL Neut % (Auto) 65.6 (16.0-70.0) % Lymph % (Auto) 26.3 (9.0-44.0) % [place] % (Auto) 6.7 (0.0-8.0) % Eos % (Auto) 0.8 (0.0-4.0) % Baso % (Auto) 0.6 (0.0-2.0) % Neut # (Auto) 4.7 (1.8-7.7) th/mm3 Lymph # (Auto) 1.9 (1.0-4.8) th/mm3 [place] # (Auto) 0.5 (0.0-0.9) th/mm3 Eos # (Auto) 0.1 (0.0-0.4) th/mm3 Baso # (Auto) 0.0 (0.0-0.2) th/mm3 WBC Differential . Differential Comment Auto diff final PT 13.4 H (9.8-11.6) sec INR 1.3 Ratio APTT 23.3 L (23.4-31.7) sec D-Dimer Quant (PE/DVT) 0.93 H (0.00-0.50) mg/L FEU Sodium 140 (136-145) meq/L Potassium 4.1 (3.5-5.1) meq/L Chloride 101 (98-107) meq/L Carbon Dioxide 26.7 (21.0-32.0) meq/L Anion Gap 12 (5-15) meq/L BUN 27 H (7-18) mg/dL Creatinine 1.23 (0.60-1.30) mg/dL Estimated GFR 59 L (>89) mL/min POC Glucose (68-110) mg/dl Random Glucose 595 H* (74-106) mg/dL Calcium 10.0 (8.5-10.1) mg/dL Total Bilirubin 1.0 (0.2-1.0) mg/dL AST 48 H (15-37) U/L ALT 37 (12-78) U/L Alkaline Phosphatase 122 H (45-117) U/L Total Protein 6.2 L (6.4-8.2) g/dL Albumin 2.6 L (3.4-5.0) g/dL Blood Type Blood Type Recheck Antibody Screen MTS Gel Crossmatch 01/17/18 01/17/18 Range/Units 08:51 11:08 WBC (4.0-11.0) th/mm3 RBC (4.50-5.90) mil/mm3 Hgb (13.0-17.0) gm/dL Hct (39.0-51.0) % MCV (80.0-100.0) fL MCH (27.0-34.0) pg MCHC (32.0-36.0) % RDW (11.6-17.2) % Plt Count (150-450) th/mm3 MPV (7.0-11.0) fL Neut % (Auto) (16.0-70.0) % Lymph % (Auto) (9.0-44.0) % [place] % (Auto) (0.0-8.0) % Eos % (Auto) (0.0-4.0) % Baso % (Auto) (0.0-2.0) % Neut # (Auto) (1.8-7.7) th/mm3 Lymph # (Auto) (1.0-4.8) th/mm3 [place] # (Auto) (0.0-0.9) th/mm3 Eos # (Auto) (0.0-0.4) th/mm3 Baso # (Auto) (0.0-0.2) th/mm3 WBC Differential Differential Comment PT (9.8-11.6) sec INR Ratio APTT (23.4-31.7) sec D-Dimer Quant (PE/DVT) (0.00-0.50) mg/L FEU Sodium (136-145) meq/L Potassium (3.5-5.1) meq/L Chloride (98-107) meq/L Carbon Dioxide (21.0-32.0) meq/L Anion Gap (5-15) meq/L BUN (7-18) mg/dL Creatinine (0.60-1.30) mg/dL Estimated GFR (>89) mL/min POC Glucose 413 H (68-110) mg/dl Random Glucose (74-106) mg/dL Calcium (8.5-10.1) mg/dL Total Bilirubin (0.2-1.0) mg/dL AST (15-37) U/L ALT (12-78) U/L Alkaline Phosphatase (45-117) U/L Total Protein (6.4-8.2) g/dL Albumin (3.4-5.0) g/dL Blood Type O Positive Blood Type Recheck Required Antibody Screen Negative MTS Gel Crossmatch See Detail Imaging Data Radiologist's impression: Chest X-Ray 01/17/18 07:43 CONCLUSION: No acute intrathoracic disease. Stable examination. Chest CTA 01/17/18 08:36 CONCLUSION: 1. No evidence of pulmonary embolus. 2. No focal or acute pulmonary infiltrates. Discharge Plan Discharge Disposition Patient Disposition: 30 Still Patient Discharge Details Diagnosis: Acute hypotension, Blood loss, Hemoptysis, Acute hyperglycemia Physicians Team ED Provider: Lavonne Baer Primary Care Provider: [facility] R[facility] /Orders / Referrals /Forms Prescriptions: No Action aspirin 325 mg Tablet 325 mg PO DAILY RF: 0 metformin 1,000 mg Tablet 1,000 mg PO BID RF: 0 insulin aspart U-100 [Novolog PenFill U-100 Insulin] 100 unit/mL Cartridge 12 unit SUBCUT BID RF: 0 levothyroxine 137 mcg Capsule 137 mcg PO DAILY RF: 0 lisinopril 40 mg PO DAILY RF: 0 venlafaxine 150 mg Capsule,Extended Release 24hr 150 mg PO DAILY RF: 0 hydroxyzine pamoate 50 mg Capsule 50 mg PO HS PRN (Reason: Sleep) RF: 0 amlodipine 2.5 mg Tablet 2.5 mg PO DAILY RF: 0 mirtazapine 30 mg Tablet 30 mg PO DAILY RF: 0 furosemide [Lasix] 40 mg Tablet 40 mg PO DAILY RF: 0 oxybutynin chloride 15 mg Tablet Extended Release 24hr 15 mg PO DAILY RF: 0 gabapentin 600 mg Tablet 600 mg PO TID RF: 0 atorvastatin 20 mg Tablet 20 mg PO DAILY RF: 0 carvedilol 12.5 mg Tablet 12.5 mg PO BID RF: 0 insulin glargine 100 unit/mL Solution 70 unit SUBCUT DAILY RF: 0 topiramate 25 mg Tablet 25 mg PO DAILY RF: 0 testosterone 1.62 % (20.25 mg/1.25 gram) Gel In Packet 1 packet TRANSDERMAL DAILY RF: 0 potassium chloride 20 mEq Tablet Extended Release 20 meq PO DAILY RF: 0 Status ED Status: Pending Admission
[2018-01-17 09:02] LABS: Alkaline Phosphatase 122 U/L (45-117); Total Protein 6.2 g/dL (6.4-8.2)
[2018-01-17 09:08] LABS: Glucose,Random 595 mg/dL (74-106)
--- NOTE | 2018-01-17 10:26 | CT ---
EXAM DATE: 01/17/2018 10:06 AM EST AGE/SEX: 62 years / Male INDICATIONS: Hemoptysis today. CLINICAL DATA: This is the patient's initial encounter. Patient reports that signs and symptoms have been present for 1 day and indicates a pain score of 0/10. MEDICAL/SURGICAL HISTORY: Carcinoma, breast. Diabetes. Hypothyroidism. Tubal ligation. Cholecyst ectomy. RADIATION DOSE: 12.01 CTDI (mGy) ; Patient body habitus COMPARISON: No prior exams available for comparison. TECHNIQUE: Volumetric scanning was performed using a multi-row detector CT scanner during bolus infu sandi of 75 ml Omnipaque 350 (iohexol) nonionic water-soluble contrast as a single exam dose. The cristian a was post processed with a variety of visualization algorithms including full volume maximum intensi ty projection and sliding thin slab reformation. Using automated exposure control and adjustment of t he mA and/or kV according to patient size, radiation dose was kept as low as reasonably achievable to obtain optimal diagnostic quality images. DICOM format image data is available electronically for r eview and comparison. FINDINGS: Pulmonary Arteries: No filling defects are seen in the pulmonary arteries out to the subsegmental ve ssels. The left and right pulmonary arteries are normal in diameter. Lung: No infiltrates seen. Effusion: None. Mediastinum: No evidence of mediastinal or hilar adenopathy. Other: A few nonspecific mildly prominent axillary lymph nodes are demonstrated. CONCLUSION: 1. No evidence of pulmonary embolus. 2. No focal or acute pulmonary infiltrates. Electronically signed by: Jose Jaimes MD 01/17/2018 10:24 AM EST
[2018-01-17] MEDS: Gabapentin 300 MG Capsule PO SCH ×2 (14:08→17:16)
[2018-01-17 14:18] LABS: Hematocrit 26.7 % (39.0-51.0); Hemoglobin 8.9 gm/dL (13.0-17.0)
--- NOTE | 2018-01-17 14:54 | P.HPFP ---
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 Patient reports he has had dizziness as well as a general fatigue since 2 weeks prior to his stroke on 12/24. Patient reports earlier this morning he passed a bowel movement which was soft, slightly liquidy. He notes he became nauseous and vomited. He noted blood in his vomit. He denies any black or bloody stools. No abdominal pain, chest pain , difficulty swallowing, pain on swallowing. He was dizzy following the vomiting and believed he needed to come to the hospital. He notes he did not take his daily insulin today as he did not eat breakfast. He reports increased urinary frequency, however no urinary pain or change in urine color. He denies vaginal bleeding, vaginal discharge. Reports he is currently postmenopausal. Patient denies fever, chills, chest pain, shortness of breath, left arm or jaw pain, headache, change in vision, focal weakness, increased dysarthria. Patient reports after his last stroke he did have mild dysarthria which had nearly completely resolved. 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 This includes certification that hospital inpatient services are reasonable and necessary and in the case of services not specified as inpatient-only under 42 CFR 419.22(n), that they are appropriately provided as inpatient services in accordance to with the 2-midnight benchmark under 43 CFR 412.3(e) <Jass Calloway - 01/19/18 14:49> I certify that the inpatient services were ordered in accordance with Medicare regulations governing the order. This includes certification that hospital inpatient services are reasonable and necessary and in the case of services not specified as inpatient-only under 42 CFR 419.22(n), that they are appropriately provided as inpatient services in accordance to with the 2-midnight benchmark under 43 CFR 412.3(e) <Nehmeias Richardson - 01/17/18 14:54> Estimated Total Length of Stay (Days): 2 <Nehemias Richardson - 01/17/18 14:54> Plans for Post Hospital Care: Home <Nehemias Richardson - 01/17/18 14:54> Review of Systems All other systems reviewed negative except as stated in HPI <Nehemias Richardson - 01/17/18 17:09> PMFSH - History History Provided By: Patient <Nehemias Richardson - 01/17/18 14:54> - Medical History Medical History: Medical History (Last Reviewed 01/17/18 @ 08:41 by Lavonne Baer) Breast cancer in male Depression Diabetes GERD (gastroesophageal reflux disease) Hypothyroidism Liver disease Migraines Sleep apnea Venous insufficiency Venous insufficiency (chronic) (peripheral) <Jass Calloway - 01/19/18 14:49> Medical History (Last Reviewed 01/17/18 @ 08:41 by Lavonne Baer) Breast cancer in male Depression Diabetes GERD (gastroesophageal reflux disease) Hypothyroidism Liver disease Migraines Sleep apnea Venous insufficiency Venous insufficiency (chronic) (peripheral) <Nehemias Richardson - 01/17/18 14:54> - Surgical History Surgical History: Surgical History (Last Reviewed 01/17/18 @ 08:41 by Lavonne Baer) History of bilateral tubal ligation History of cholecystectomy <Jass Calloway - 01/19/18 14:49> Surgical History (Last Reviewed 01/17/18 @ 08:41 by Lavonne Baer) History of bilateral tubal ligation History of cholecystectomy <Nehemias Richardson - 01/17/18 14:54> - Family History Family History: Family History (Last Reviewed 12/25/17 @ 13:18 by Mercedez Dasilva) Father Trigeminal neuralgia Mother Diabetes <Jass Calloway - 01/19/18 14:49> Family History (Last Reviewed 12/25/17 @ 13:18 by Mercedez Dasilva) Father Trigeminal neuralgia Mother Diabetes <Nehemias Richardson 01/17/18 14:54> - Tobacco History Second Hand Smoke Exposure: Yes <Nehemias Richardson 01/17/18 14:54> Tobacco Use In Past 30 Days: Yes <Nehemias Richardson 01/17/18 14:54> Smoking Status: Current every day smoker <Nehemias Richardson 01/17/18 14:54> Tobacco Type: Cigarettes <Nehemias Richardson 01/17/18 14:54> - Alcohol History How Often Do You Have a Drink Containing Alcohol: Never <Nehemias Richardson 14:54> - Substance Use History Substance History: No History of Abuse <Nehemias Richardson 01/17/18 14:54> - Travel History Recent Travel in the [facility] Within the Last 8 Weeks: No <Nehemias Richardson 01/17 14:54> Recent Travel Out of the Country Within the Last 8 Weeks: No <Nehemias Richardson 01/17/18 14:54> - Immunization History Tetanus Immunization: >5 Years <Nehemias Richardson 01/17/18 14:54> Medications and Allergies Allergies Allergy/AdvReac Type Severity Reaction Status Date / Time ciprofloxacin Allergy Severe Hives Verified 01/17/18 07:18 egg Allergy Severe Shortness Verified 01/17/18 07:18 of Breath Influenza Virus Vaccines Allergy Severe ALLERGIC Verified 01/17/18 07:18 TO EGGS shellfish derived Allergy Severe Diarrhea Verified 01/17/18 07:18 Benzodiazepines AdvReac Intermediate Agitation Verified 01/17/18 07:50 diazepam AdvReac Intermediate Agitation Verified 01/17/18 07:50 tramadol AdvReac Intermediate Agitation Verified 01/17/18 07:50 <Jass Calloway - 01/19/18 14:49> Home Medications Medication Instructions Recorded Confirmed Type aspirin 325 mg PO DAILY 12/24/17 01/17/18 History insulin aspart U-100 [Novolog 12 unit SUBCUT BID 12/24/17 01/17/18 History PenFill U-100 Insulin] levothyroxine 137 mcg PO DAILY 12/24/17 01/17/18 History lisinopril 40 mg PO DAILY 12/24/17 01/17/18 History metformin 1,000 mg PO BID 12/24/17 01/17/18 History amlodipine 2.5 mg PO DAILY 12/25/17 01/17/18 History atorvastatin 20 mg PO DAILY 12/25/17 01/17/18 History carvedilol 12.5 mg PO BID 12/25/17 01/17/18 History furosemide [Lasix] 40 mg PO DAILY 12/25/17 01/17/18 History gabapentin 600 mg PO TID 12/25/17 01/17/18 History hydroxyzine pamoate 50 mg PO HS PRN 12/25/17 01/17/18 History insulin glargine 70 unit SUBCUT DAILY 12/25/17 01/17/18 History mirtazapine 30 mg PO DAILY 12/25/17 01/17/18 History oxybutynin chloride 15 mg PO DAILY 12/25/17 01/17/18 History potassium chloride 20 meq PO DAILY 12/25/17 01/17/18 History testosterone 1 packet TRANSDERMAL DAILY 12/25/17 01/17/18 History topiramate 25 mg PO DAILY 12/25/17 01/17/18 History venlafaxine 150 mg PO DAILY 12/25/17 01/17/18 History <Jass Calloway - 01/19/18 14:49> Active Medications: Active Medications Amlodipine Besylate (Norvasc) 5 mg PO Q24H [facility] Last Admin: 01/18/18 20:16 Dose: Not Given Atorvastatin Calcium (Lipitor) 20 mg PO Q24H [facility] Last Admin: 01/18/18 20:16 Dose: 20 mg Carvedilol (Coreg) 12.5 mg PO BID [facility] Last Admin: 01/19/18 08:34 Dose: 12.5 mg Dextrose (D50w Vial) 50 ml IV.PUSH UNSCH PRN PRN Reason: PER HYPOGLYCEMIA PROTOCOL Flumazenil (Romazecon Inj) 0.2 mg IV.PUSH Q1M PRN PRN Reason: OVERSEDATION Furosemide (Lasix) 40 mg PO Q24H [facility] Last Admin: 01/19/18 08:34 Dose: 40 mg Gabapentin (Neurontin) 600 mg PO TID [facility] Last Admin: 01/19/18 13:01 Dose: 600 mg Glucagon (Glucagon Inj) 1 mg OTHER PRN PRN PRN Reason: for Hypoglycemia Protocol Haloperidol Lactate (Haldol Inj) 1 mg IV.PUSH Q15M PRN PRN Reason: for severe agitation Hydroxyzine Pamoate (Vistaril) 50 mg PO HS PRN PRN Reason: Sleep Lactated Ringer's (Lr 1000 Ml Inj) 1,000 mls @ 30 mls/hr IV.SIG .Q24H [facility] Stop: 01/20/18 02:44 Last Admin: 01/19/18 10:20 Dose: 30 mls/hr Octreotide Acetate 500 mcg/ (Sodium Chloride) 500.5 mls @ 25.02 mls/hr IV.CONT .Q20H1M [facility] Insulin Aspart (Novolog Insulin Correctional Sugar Inj) 0 unit SQ ACHS AND 3AM YUSRA; Protocol Last Admin: 01/19/18 12:32 Dose: Not Given Insulin Detemir (Levemir Inj) 35 unit SQ BID [facility] Levothyroxine Sodium (Synthroid) 112 mcg PO DAILY@0600 [facility] Last Admin: 01/19/18 05:19 Dose: 112 mcg Levothyroxine Sodium (Synthroid) 25 mcg PO DAILY@0600 [facility] Last Admin: 01/19/18 05:19 Dose: 25 mcg Lisinopril (Prinivil) 40 mg PO DAILY [facility] Last Admin: 01/19/18 08:34 Dose: 40 mg Lorazepam (Ativan) 1 mg PO Q4H PRN PRN Reason: for CIWA 8-10 Lorazepam (Ativan) 2 mg PO Q2H PRN PRN Reason: for CIWA 11-14 Lorazepam (Ativan Inj) 2 mg IV.PUSH Q2H PRN PRN Reason: for CIWA 11-14 Lorazepam (Ativan Inj) 2 mg IV.PUSH Q1H PRN PRN Reason: for CIWA 15-20 Lorazepam (Ativan Inj) 2 mg IV.PUSH Q15M PRN PRN Reason: for CIWA > 20 Lorazepam (Ativan Inj) 1 mg IV.PUSH Q4H PRN PRN Reason: for CIWA 8-10 Mirtazapine (Remeron) 30 mg PO Q24H [facility] Last Admin: 01/18/18 20:17 Dose: 30 mg Nadolol (Corgard) 40 mg PO DAILY [facility] Pantoprazole Sodium (Protonix Inj) 40 mg IV.PUSH BID [facility] Last Admin: 01/19/18 09:10 Dose: 40 mg Sodium Chloride (Ns Flush) 2 ml IV.FLUSH BID [facility] Last Admin: 01/19/18 08:37 Dose: 2 ml Sodium Chloride (Ns Flush) 2 ml IV.FLUSH PRN PRN PRN Reason: FLUSH AFTER USING IV ACCESS Topiramate (Topamax) 25 mg PO DAILY [facility] Last Admin: 01/19/18 08:34 Dose: 25 mg Venlafaxine HCl (Effexor Xr) 150 mg PO DAILY [facility] Last Admin: 01/19/18 08:34 Dose: 150 mg <Jass Calloway - 01/19/18 14:49> Active Medications Amlodipine Besylate (Norvasc) 5 mg PO Q24H [facility] Atorvastatin Calcium (Lipitor) 20 mg PO Q24H [facility] Carvedilol (Coreg) 12.5 mg PO BID [facility] Furosemide (Lasix) 40 mg PO Q24H [facility] Gabapentin (Neurontin) 600 mg PO TID [facility] Last Admin: 01/17/18 14:08 Dose: 600 mg Hydroxyzine Pamoate (Vistaril) 50 mg PO HS PRN PRN Reason: Sleep Insulin Detemir (Levemir Inj) 70 unit SQ Q24H [facility] Levothyroxine Sodium (Synthroid) 112 mcg PO DAILY@0600 [facility] Levothyroxine Sodium (Synthroid) 25 mcg PO DAILY@0600 [facility] Lisinopril (Prinivil) 40 mg PO DAILY [facility] Mirtazapine (Remeron) 30 mg PO Q24H [facility] Pantoprazole Sodium (Protonix Inj) 40 mg IV.PUSH BID [facility] Sodium Chloride (Ns Flush) 2 ml IV.FLUSH BID [facility] Sodium Chloride (Ns Flush) 2 ml IV.FLUSH PRN PRN PRN Reason: FLUSH AFTER USING IV ACCESS Topiramate (Topamax) 25 mg PO DAILY [facility] Venlafaxine HCl (Effexor Xr) 150 mg PO DAILY [facility] Nehemias Cox - 12/01/18 14:54> Exam Vital signs: Vital Signs 01/18/18 20:00 01/19/18 00:00 01/19/18 04:00 Temperature 98.0 F 97.3 F L 97.5 F L Pulse Rate 92 H 96 H 94 H Respiratory Rate 20 19 18 Blood Pressure 94/51 L 138/62 120/56 L Pulse Oximetry 96 93 L 96 01/19/18 08:00 01/19/18 08:34 01/19/18 12:30 Temperature 98.3 F 98.8 F Pulse Rate 96 H 95 H 83 Respiratory Rate 16 18 Blood Pressure 111/59 L 111/56 L Pulse Oximetry 95 95 96 Intake & Output 01/18/18 01/19/18 01/19/18 18:59 06:59 18:59 Intake Total 2300 / 2300 30 / 30 100 / 100 Balance 2300 / 2300 30 / 30 100 / 100 Weight 118.3 kg Intake: IV 30 / 30 100 / 100 KCl 20 mEq Premix Inj 20 meq In 100 / 100 100 ml @ 50 mls/hr IV.SIG ONCE ONE Rx#:[id number] NS Inj 250 ML @ 15 mls/hr IV. 30 / 30 SIG ONCE YUSRA Rx#:[id number] Oral 1400 / 1400 Other 100 / 100 Rbc As-3 Leukoreduced Unit 100 / 100 [id number] Intake (Blood Product) Amt 800 / 800 Rbc As-3 Leukoreduced Unit 400 / 400 [id number] Rbc As-3 Leukoreduced Unit 400 / 400 [id number] Other: # Voids 3 3 Date of Last Bowel Movement 01/18/18 01/18/18 01/19/18 # Bowel Movements 3 2 <Jass Calloway - 01/19/18 14:49> Vital Signs 01/17/18 07:16 01/17/18 07:43 01/17/18 08:55 Temperature 97.4 F L 97.9 F Pulse Rate 94 H 89 94 H Respiratory Rate 20 19 Blood Pressure 99/52 L 103/53 L Pulse Oximetry 98 98 96 01/17/18 10:00 01/17/18 10:54 01/17/18 12:18 Temperature 97.8 F 98.1 F 98.3 F Pulse Rate 104 H 108 H 110 H Respiratory Rate 20 19 21 Blood Pressure 109/60 120/58 L 109/52 L Pulse Oximetry 98 96 95 01/17/18 13:21 01/17/18 14:02 Temperature 98.1 F Pulse Rate 113 H Respiratory Rate 23 Blood Pressure 121/55 L Pulse Oximetry 96 94 L Intake & Output 01/16/18 01/17/18 01/17/18 18:59 06:59 18:59 Intake Total 1999 Balance 1999 Weight 117.48 kg Intake: IV 1999 NS Inj 1,000 ML @ 1000 mls/hr 1999 IV.SIG BOLUS YUSRA Rx#:[id number] <Nehemias Richardson - 01/17/18 14:54> Narrative: GENERAL: Laying in bed, resting comfortably. SKIN: Warm and dry. HEAD: Atraumatic. Normocephalic. EYES: PERRLA. No scleral icterus. No injection or drainage. ENT: No nasal bleeding or discharge. Mucous membranes pink and moist. Poor dentition. NECK: Trachea midline. No JVD. CARDIOVASCULAR: Regular rate and rhythm. RESPIRATORY: No accessory muscle use. Clear to auscultation. Breath sounds equal bilaterally. GASTROINTESTINAL: Abdomen soft, non-tender, nondistended. Hepatic and splenic margins not palpable. MUSCULOSKELETAL: Extremities without clubbing, cyanosis, or edema. No obvious deformities. NEUROLOGICAL: Awake and alert. No obvious cranial nerve deficits. Motor grossly within normal limits. Five out of 5 muscle strength in the arms and legs. Mildly dysarthric, patient reports baseline. PSYCHIATRIC: Appropriate mood and affect; insight and judgment normal. <Nehemias Richardson - 01/17/18 17:09> Results - Labs Result diagrams: 01/19/18 07:52 01/19/18 05:56 <Jass Calloway - 01/19/18 14:49> Abnormal lab results 01/17/18 01/18/18 01/18/18 Range/Units 08:51 16:28 16:37 Hgb 8.1 L (13.0-17.0) gm/dL Hct 23.4 L (39.0-51.0) % Sodium (136-145) meq/L Potassium (3.5-5.1) meq/L Chloride (98-107) meq/L BUN (7-18) mg/dL POC Glucose 381 H (68-110) mg/dl Random Glucose (74-106) mg/dL MTS Gel Crossmatch See Detail 01/18/18 01/18/18 01/19/18 Range/Units 20:19 20:21 00:36 Hgb 8.2 L 8.6 L (13.0-17.0) gm/dL Hct 23.5 L 25.1 L (39.0-51.0) % Sodium (136-145) meq/L Potassium (3.5-5.1) meq/L Chloride (98-107) meq/L BUN (7-18) mg/dL POC Glucose 267 H (68-110) mg/dl Random Glucose (74-106) mg/dL MTS Gel Crossmatch 01/19/18 01/19/18 01/19/18 Range/Units 05:56 05:56 07:52 Hgb 8.0 L 7.6 L (13.0-17.0) gm/dL Hct 22.8 L 21.4 L (39.0-51.0) % Sodium 147 H (136-145) meq/L Potassium 2.7 L* D (3.5-5.1) meq/L Chloride 110 H (98-107) meq/L BUN 32 H (7-18) mg/dL POC Glucose (68-110) mg/dl Random Glucose 113 H D (74-106) mg/dL MTS Gel Crossmatch 01/19/18 Range/Units 07:55 Hgb (13.0-17.0) gm/dL Hct (39.0-51.0) % Sodium (136-145) meq/L Potassium (3.5-5.1) meq/L Chloride (98-107) meq/L BUN (7-18) mg/dL POC Glucose 125 H (68-110) mg/dl Random Glucose (74-106) mg/dL MTS Gel Crossmatch Short CBC 01/18/18 01/18/18 01/19/18 Range/Units 16:28 20:21 00:36 Hgb 8.1 L 8.2 L 8.6 L (13.0-17.0) gm/dL Hct 23.4 L 23.5 L 25.1 L (39.0-51.0) % 01/19/18 01/19/18 Range/Units 05:56 07:52 Hgb 8.0 L 7.6 L (13.0-17.0) gm/dL Hct 22.8 L 21.4 L (39.0-51.0) % BMP 01/19/18 05:56 Sodium 147 H Potassium 2.7 L* D Chloride 110 H Carbon Dioxide 30.3 BUN 32 H Creatinine 0.81 Calcium 9.1 <Jass Calloway - 01/19/18 14:49> Abnormal lab results 01/17/18 01/17/18 01/17/18 Range/Units 08:00 08:00 08:00 RBC 2.76 L (4.50-5.90) mil/mm3 Hgb 9.1 L (13.0-17.0) gm/dL Hct 27.9 L (39.0-51.0) % MCV 101.0 H (80.0-100.0) fL Plt Count 149 L (150-450) th/mm3 PT 13.4 H (9.8-11.6) sec APTT 23.3 L (23.4-31.7) sec D-Dimer Quant (PE/DVT) 0.93 H (0.00-0.50) mg/L FEU BUN 27 H (7-18) mg/dL Estimated GFR 59 L (>89) mL/min POC Glucose (68-110) mg/dl Random Glucose 595 H* (74-106) mg/dL AST 48 H (15-37) U/L Alkaline Phosphatase 122 H (45-117) U/L Total Protein 6.2 L (6.4-8.2) g/dL Albumin 2.6 L (3.4-5.0) g/dL MTS Gel Crossmatch 01/17/18 01/17/18 01/17/18 Range/Units 08:51 11:08 12:17 RBC (4.50-5.90) mil/mm3 Hgb (13.0-17.0) gm/dL Hct (39.0-51.0) % MCV (80.0-100.0) fL Plt Count (150-450) th/mm3 PT (9.8-11.6) sec APTT (23.4-31.7) sec D-Dimer Quant (PE/DVT) (0.00-0.50) mg/L FEU BUN (7-18) mg/dL Estimated GFR (>89) mL/min POC Glucose 413 H 350 H (68-110) mg/dl Random Glucose (74-106) mg/dL AST (15-37) U/L Alkaline Phosphatase (45-117) U/L Total Protein (6.4-8.2) g/dL Albumin (3.4-5.0) g/dL MTS Gel Crossmatch See Detail 01/17/18 Range/Units 13:49 RBC (4.50-5.90) mil/mm3 Hgb 8.9 L (13.0-17.0) gm/dL Hct 26.7 L (39.0-51.0) % MCV (80.0-100.0) fL Plt Count (150-450) th/mm3 PT (9.8-11.6) sec APTT (23.4-31.7) sec D-Dimer Quant (PE/DVT) (0.00-0.50) mg/L FEU BUN (7-18) mg/dL Estimated GFR (>89) mL/min POC Glucose (68-110) mg/dl Random Glucose (74-106) mg/dL AST (15-37) U/L Alkaline Phosphatase (45-117) U/L Total Protein (6.4-8.2) g/dL Albumin (3.4-5.0) g/dL MTS Gel Crossmatch Short CBC 01/17/18 01/17/18 Range/Units 08:00 13:49 WBC 7.2 (4.0-11.0) th/mm3 Hgb 9.1 L 8.9 L (13.0-17.0) gm/dL Hct 27.9 L 26.7 L (39.0-51.0) % Plt Count 149 L (150-450) th/mm3 BMP 01/17/18 08:00 Sodium 140 Potassium 4.1 Chloride 101 Carbon Dioxide 26.7 BUN 27 H Creatinine 1.23 Calcium 10.0 Liver Function 01/17/18 Range/Units 08:00 Total Bilirubin 1.0 (0.2-1.0) mg/dL AST 48 H (15-37) U/L ALT 37 (12-78) U/L Alkaline Phosphatase 122 H (45-117) U/L Albumin 2.6 L (3.4-5.0) g/dL <Nehemias Richardson - 01/17/18 14:54> - Imaging Impressions Chest X-Ray 01/17/18 07:43 CONCLUSION: No acute intrathoracic disease. Stable examination. Chest CTA 01/17/18 08:36 CONCLUSION: 1. No evidence of pulmonary embolus. 2. No focal or acute pulmonary infiltrates. <Nehemias Richardson - 01/17/18 14:54> Caprinolesya VTE Risk Assessment Franklynrini VTE Risk Assessment: Moderate/High Risk (score >= 2) <Nehemias Richardson - 01/17/18 17:09> Matthew Risk Assessment Model: Point Value = 1 Point Value = 2 Point Value = 3 Point Value = 5 Age 41-60 Minor surgery BMI > 25 kg/m2 Swollen legs Varicose veins or History of unexplained or recurrent spontaneous Oral contraceptives or hormone replacement Sepsis (< 1 month) Serious lung disease, including pneumonia (< 1 month) Abnormal pulmonary function Acute myocardial infarction Congestive heart failure (< 1 month) History of inflammatory bowel disease Medical patient at bed rest Age 61-74 Arthroscopic surgery Major open surgery (> 45 min) Laparoscopic surgery (> 45 min) Malignancy Confined to bed (> 72 hours) Immobilizing plaster cast Central venous access Age >= 75 History of VTE Family history of VTE Factor V Leiden Prothrombin [id number] Lupus anticoagulant Anticardiolipin antibodies Elevated serum homocysteine Heparin-induced thrombocytopenia Other congenital or acquired thrombophilia Stroke (< 1 month) Elective arthroplasty Hip, pelvis, or leg fracture Acute spinal cord injury (< 1 month) <Jass Calloway - 01/19/18 14:49> Point Value = 1 Point Value = 2 Point Value = 3 Point Value = 5 Age 41-60 Minor surgery BMI > 25 kg/m2 Swollen legs Varicose veins or History of unexplained or recurrent spontaneous Oral contraceptives or hormone replacement Sepsis (< 1 month) Serious lung disease, including pneumonia (< 1 month) Abnormal pulmonary function Acute myocardial infarction Congestive heart failure (< 1 month) History of inflammatory bowel disease Medical patient at bed rest Age 61-74 Arthroscopic surgery Major open surgery (> 45 min) Laparoscopic surgery (> 45 min) Malignancy Confined to bed (> 72 hours) Immobilizing plaster cast Central venous access Age >= 75 History of VTE Family history of VTE Factor V Leiden Prothrombin [id number] Lupus anticoagulant Anticardiolipin antibodies Elevated serum homocysteine Heparin-induced thrombocytopenia Other congenital or acquired thrombophilia Stroke (< 1 month) Elective arthroplasty Hip, pelvis, or leg fracture Acute spinal cord injury (< 1 month) <Nehemias Richardson - 01/17/18 14:54> Prophylaxis Regimen: Total Risk Factor Score Risk Level Prophylaxis Regimen 0-1 Low Early ambulation 2 Moderate Order ONE of the following: *Sequential Compression Device (SCD) *Heparin 5000 units SQ BID 3-4 Higher Order ONE of the following medications: *Heparin 5000 units SQ TID *Enoxaparin/Lovenox 40 mg SQ daily (WT < 150 kg, CrCl > 30 mL/min) *Enoxaparin/Lovenox 30 mg SQ daily (WT < 150 kg, CrCl > 10-29 mL/min) *Enoxaparin/Lovenox 30 mg SQ BID (WT < 150 kg, CrCl > 30 mL/min) AND/OR *Sequential Compression Device (SCD) 5 or more Highest Order ONE of the following medications: *Heparin 5000 units SQ TID (Preferred with Epidurals) *Enoxaparin/Lovenox 40 mg SQ daily (WT < 150 kg, CrCl > 30 mL/min) *Enoxaparin/Lovenox 30 mg SQ daily (WT < 150 kg, CrCl > 10-29 mL/min) *Enoxaparin/Lovenox 30 mg SQ BID (WT < 150 kg, CrCl > 30 mL/min) AND *Sequential Compression Device (SCD) <Jass Calloway - 01/19/18 14:49> Total Risk Factor Score Risk Level Prophylaxis Regimen 0-1 Low Early ambulation 2 Moderate Order ONE of the following: *Sequential Compression Device (SCD) *Heparin 5000 units SQ BID 3-4 Higher Order ONE of the following medications: *Heparin 5000 units SQ TID *Enoxaparin/Lovenox 40 mg SQ daily (WT < 150 kg, CrCl > 30 mL/min) *Enoxaparin/Lovenox 30 mg SQ daily (WT < 150 kg, CrCl > 10-29 mL/min) *Enoxaparin/Lovenox 30 mg SQ BID (WT < 150 kg, CrCl > 30 mL/min) AND/OR *Sequential Compression Device (SCD) 5 or more Highest Order ONE of the following medications: *Heparin 5000 units SQ TID (Preferred with Epidurals) *Enoxaparin/Lovenox 40 mg SQ daily (WT < 150 kg, CrCl > 30 mL/min) *Enoxaparin/Lovenox 30 mg SQ daily (WT < 150 kg, CrCl > 10-29 mL/min) *Enoxaparin/Lovenox 30 mg SQ BID (WT < 150 kg, CrCl > 30 mL/min) AND *Sequential Compression Device (SCD) <Nehemias Richardson - 01/17/18 14:54> Assessment and Plan - Assessment (1) Hematemesis Code(s): K92.0 - Hematemesis Status: Acute Plan: Patient with one large episode of hematemesis. Hemoglobin 9.1. Denies further bleeding. -Trend H&H overnight -Transfuse as needed -Consult GI for possible endoscopy and/or colonoscopy (2) Anemia Code(s): D64.9 - Anemia, unspecified Status: Acute Plan: See plan for hematemesis (3) Diabetes Code(s): E11.9 - Type 2 diabetes mellitus without complications Status: Acute Plan: Patient presents with glucose 595. Improved to 350 after insulin in ED. -Continue home long-acting insulin of 70 units nightly -Low-dose sliding scale insulin -IV hydration (4) Hypothyroid Code(s): E03.9 - Hypothyroidism, unspecified Status: Acute Plan: History of hypothyroidism. 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 Used to take testosterone outpatient until recent CVA. -Outpatient testosterone held (6) Hypertension Code(s): I10 - Essential (primary) hypertension Status: Acute Plan: History of hypertension -Continue lisinopril 40 mill grams daily (7) Dyslipidemia Code(s): E78.5 - Hyperlipidemia, unspecified Status: Acute (8) Depression Code(s): F32.9 - Major depressive disorder, single episode, unspecified Status : Acute Plan: History of depression. 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 I saw and evaluated the patient regarding the vogel portions of this evaluation and agree with the residents findings and plans as written. Parts of this note were created using [employer] voice recognition software program. While efforts were made to correct any mistakes made by this software, some mistakes, errors, and omissions may remain in the final note that were not caught when the note was originally created. Plan of care was discussed and agreed upon with the patient as specifically documented in the above note. An opportunity to ask questions with explanation was provided. Patient voiced understanding on all information reviewed and discussed. <Jass Calloway - 01/19/18 14:49>
[2018-01-17] MEDS ORDERED: LORazepam 1 MG Tablet PO PRN (15:55)
[2018-01-17] MEDS ORDERED: Haloperidol Inj 5 MG/ML Ampul IV.PUSH PRN (15:55)
[2018-01-17] MEDS: Venlafaxine XR 75 MG Capsule PO SCH (16:21)
[2018-01-17] MEDS ORDERED: Dextrose 50% in Water 50 ML Vial IV.PUSH PRN (17:17)
--- NOTE | 2018-01-17 19:42 | MB ---
cc: Rosemary Maciel MD DATE: 01/17/2018 REASON FOR CONSULTATION: Hematemesis. HISTORY OF PRESENT ILLNESS: This is a 62-year-old male patient with a past medical history significant for the following problems: Diabetes mellitus, gastroesophageal reflux disease, hypothyroidism, liver disease, migraine headache, sleep apnea, chronic venous insufficiency, breast cancer, who presented to the hospital complaining of dizziness and fatigue. The patient had several attacks of nausea, but never vomited until hours before presentation to the presentation, when he had a large amount of fresh blood vomitus. He presented for further evaluation. During hospitalization, the patient was found to have high blood sugar with random blood sugar of 600. His liver enzymes were slightly elevated and his blood test showed evidence of anemia with high MCV, MCH. GI consulted for evaluation of this hematemesis. The patient denies any previous similar problem. He acknowledges having previous endoscopy and colonoscopy several years ago, he cannot recall when, that showed evidence of colon polyps of unknown type. PAST MEDICAL HISTORY: 1. Breast CA. 2. Depression. 3. Diabetes. 4. Gastroesophageal reflux disease. 5. Hypothyroidism. 6. Liver disease. 7. Migraine. 8. Sleep apnea. 9. Venous insufficiency. PAST SURGICAL HISTORY: Positive for cholecystectomy. PSYCHOSOCIAL HISTORY: He is a smoker. Denies IV drug abuse or heavy alcohol use. FAMILY HISTORY: Unremarkable. REVIEW OF SYSTEMS: All 14 points to the mid review of systems negative other than ones I mentioned in the history of present illness. PHYSICAL EXAMINATION: GENERAL: The patient appears to be comfortable, with hydration status and nutritional status, not in distress or in pain, slightly pale, hemodynamically stable with stable vital signs HEAD AND NECK: Normocephalic, atraumatic. Pupils equal and reactive to light. NECK: Supple neck. No lymphadenopathy. CHEST: Clear to auscultation bilaterally. No crackles or wheezes. CARDIOVASCULAR: Regular rate and rhythm. No murmurs. ABDOMEN: Soft, nontender. No hepatosplenomegaly. No palpable masses. EXTREMITIES: Normal pulses. No edema. NEUROLOGIC: The patient is alert, oriented x 3. No focal motor or sensory deficit. Cranial nerves 2-12 grossly intact. SKIN: No rashes. LABORATORY DATA: Showed hemoglobin of 9.1, hematocrit 27.6. Otherwise electrolytes were unremarkable. Blood sugar of 600. ASSESSMENT AND PLAN: A 62-year-old male patient with the following problems: 1. One episode of large amount of hematemesis described as fresh blood with no evidence of melena. 2. No previous history of similar problem or GI disorder. 3. Chronic use of aspirin as antiplatelet to prevent venous thrombosis. 4. 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 5. Diabetic ketoacidosis. 6. High blood sugar. 7. Anemia. RECOMMENDATIONS: We will continue supportive care for the time being. Control blood sugar if possible over the next 24 hours, excessive hydration, serial hemoglobin and hematocrit. Blood transfusion as needed. Proton pump inhibitors. We will check right upper quadrant ultrasound to assess the liver for possible liver cirrhosis. We will schedule him for upper endoscopy to rule out Kyleigh-Yancey tear or other causes, including variceal bleeding. At the same time, we will proceed with a colonoscopy examination since the patient is due for followup for his colon polyps. Further recommendation to follow. MD GURWINDER Rai/jeanette , 04:33 PM , 04:42 PM
[2018-01-17 19:49] LABS: Hematocrit 24.2 % (39.0-51.0); Hemoglobin 8.1 gm/dL (13.0-17.0)
[2018-01-17] MEDS: Pantoprazole Inj 40 MG Vial IV.PUSH SCH (20:13)
[2018-01-17] MEDS: Mirtazapine 15 MG Tablet PO SCH (20:14)
[2018-01-17] MEDS: amLODIPine 5 MG Tablet PO SCH (20:14)
[2018-01-17] MEDS: Carvedilol 12.5 MG Tablet PO SCH (20:14)
[2018-01-17] MEDS: Insulin Detemir Inj 1,000 UNIT/10 ML Vial SQ SCH (20:15)
[2018-01-17] MEDS: Insulin NovoLOG Aspart Correctional Sugar Inj SQ SCH (20:15)
[2018-01-17] MEDS ORDERED: Insulin Detemir Inj 1,000 UNIT/10 ML Vial SQ SCH (21:00)
[2018-01-18] MEDS: Insulin NovoLOG Aspart Correctional Sugar Inj SQ SCH ×5 (04:00→20:20)
[2018-01-18] MEDS: Levothyroxine 112 MCG Tablet PO SCH (06:00)
--- NOTE | 2018-01-18 07:57 | US ---
EXAM DATE: 01/18/2018 7:49 AM EST AGE/SEX: 62 years / Male INDICATIONS: Elevated lab values. CLINICAL DATA: This is the patient's initial encounter. Patient reports that signs and symptoms have been present for 1 day and indicates a pain score of 2/10. MEDICAL/SURGICAL HISTORY: Gastroesophageal reflux disease. Hypothyroidism. Breast cancer. Depr ession. Diabetes. Liver disease. Migraines. Sleep apnea. Venous insufficiency. Cholecystectomy. COMPARISON: No prior exams available for comparison. MEASUREMENTS: Liver:__ 20.8 cm. Common Bile Duct:__ 9mm. Right Kidney:__ 12.6 x 6.5 x 5.2 cm. FINDINGS: Liver: Increased echotexture without focal lesion or ductal dilation. Portal Vein: Hepatopedal flow seen in portal vein. Common Duct: No intraluminal mass or stone visualized. Gallbladder: Surgically absent. Pancreas: The visualized portions are within normal limits Right Kidney: Normal echotexture and cortical thickness. No mass or hydronephrosis. Other: The spleen is mildly enlarged at 15.6 cm. CONCLUSION: 1. There is increased echogenicity throughout the liver parenchyma suggestive of fatty infiltration. No evidence of biliary tract obstruction. 2. Mild splenomegaly. Electronically signed by: Jose Jaimes MD 01/18/2018 7:55 AM EST
[2018-01-18] MEDS ORDERED: Non-Formulary Drug (Levothyroxine [Levothyroxine] 137 MCG) PO SCH (09:00)
[2018-01-18 09:13] LABS: Baso # (Auto) 0.1 th/mm3 (0.0-0.2); Baso % (Auto) 0.7 % (0.0-2.0); Eos # (Auto) 0.2 th/mm3 (0.0-0.4); Eos % (Auto) 1.9 % (0.0-4.0); Lymph # (Auto) 2.7 th/mm3 (1.0-4.8); Lymph % (Auto) 30.7 % (9.0-44.0); Mean Corpuscular HGB Conc 34.6 % (32.0-36.0); Mean Corpuscular Hemoglobin 34.2 pg (27.0-34.0); Mean Corpuscular Volume 98.9 fL (80.0-100.0); Mean Platelet Volume 8.5 fL (7.0-11.0); Mono # (Auto) 0.7 th/mm3 (0.0-0.9); Mono % (Auto) 7.7 % (0.0-8.0); Neut # (Auto) 5.2 th/mm3 (1.8-7.7); Platelet Count 152 th/mm3 (150-450); Red Blood Count 2.08 mil/mm3 (4.50-5.90); Red Cell Distribution Width 15.1 % (11.6-17.2); White Blood Count 8.9 th/mm3 (4.0-11.0)
[2018-01-18 09:17] LABS: Hematocrit 20.5 % (39.0-51.0)
[2018-01-18 09:18] LABS: Hemoglobin 7.1 gm/dL (13.0-17.0)
[2018-01-18 09:39] LABS: Alanine Aminotransferase 29 U/L (12-78); Albumin 2.6 g/dL (3.4-5.0); Anion Gap 6 meq/L (5-15); Aspartate Aminotransferase 32 U/L (15-37); Calcium 9.8 mg/dL (8.5-10.1); Chloride 109 meq/L (98-107); Glomerular Filtration Rate 78 mL/min (>89); Glucose,Random 337 mg/dL (74-106); Potassium 3.6 meq/L (3.5-5.1); Sodium 144 meq/L (136-145)
[2018-01-18 09:44] LABS: Alkaline Phosphatase 75 U/L (45-117); Blood Urea Nitrogen 42 mg/dL (7-18); Total Protein 5.9 g/dL (6.4-8.2)
[2018-01-18] MEDS: Topiramate 25 MG Tablet PO SCH (09:47)
[2018-01-18] MEDS: Gabapentin 300 MG Capsule PO SCH ×3 (09:47→17:01)
[2018-01-18] MEDS: Lisinopril 20 MG Tablet PO SCH (09:47)
[2018-01-18] MEDS: Insulin Detemir Inj 1,000 UNIT/10 ML Vial SQ SCH ×2 (09:47→20:16)
[2018-01-18] MEDS: Carvedilol 12.5 MG Tablet PO SCH ×2 (09:47→20:15)
[2018-01-18] MEDS: Venlafaxine XR 75 MG Capsule PO SCH (09:48)
[2018-01-18] MEDS: Pantoprazole Inj 40 MG Vial IV.PUSH SCH ×2 (09:48→20:17)
[2018-01-18] MEDS: Furosemide 40 MG Tablet PO SCH (09:48)
[2018-01-18] MEDS ORDERED: Sodium Chlor 0.9% Inj 250 ML IV.SIG SCH (10:00)
[2018-01-18] MEDS: Acetaminophen 325 MG Tablet PO PRN ×2 (11:16→15:49)
--- NOTE | 2018-01-18 11:49 | P.PNFP ---
Subjective Interval history: Patient states that he feels a little better and passed some gas but still has stomach pain. Pt also had multiple episodes of diarrheal stool that was brown and red in color which he suspects is blood. Denies fever/chills, chest pain, shortness of breath, dizziness, blurry vision. <EkoJing Elvia - 01/18/18 12:35> Results - Labs Result diagrams: 01/19/18 07:52 01/19/18 05:56 <Jass Calloway - 01/19/18 14:56> Abnormal lab results 01/17/18 01/18/18 01/18/18 Range/Units 08:51 16:28 16:37 Hgb 8.1 L (13.0-17.0) gm/dL Hct 23.4 L (39.0-51.0) % Sodium (136-145) meq/L Potassium (3.5-5.1) meq/L Chloride (98-107) meq/L BUN (7-18) mg/dL POC Glucose 381 H (68-110) mg/dl Random Glucose (74-106) mg/dL MTS Gel Crossmatch See Detail 01/18/18 01/18/18 01/19/18 Range/Units 20:19 20:21 00:36 Hgb 8.2 L 8.6 L (13.0-17.0) gm/dL Hct 23.5 L 25.1 L (39.0-51.0) % Sodium (136-145) meq/L Potassium (3.5-5.1) meq/L Chloride (98-107) meq/L BUN (7-18) mg/dL POC Glucose 267 H (68-110) mg/dl Random Glucose (74-106) mg/dL MTS Gel Crossmatch 01/19/18 01/19/18 01/19/18 Range/Units 05:56 05:56 07:52 Hgb 8.0 L 7.6 L (13.0-17.0) gm/dL Hct 22.8 L 21.4 L (39.0-51.0) % Sodium 147 H (136-145) meq/L Potassium 2.7 L* D (3.5-5.1) meq/L Chloride 110 H (98-107) meq/L BUN 32 H (7-18) mg/dL POC Glucose (68-110) mg/dl Random Glucose 113 H D (74-106) mg/dL MTS Gel Crossmatch 01/19/18 Range/Units 07:55 Hgb (13.0-17.0) gm/dL Hct (39.0-51.0) % Sodium (136-145) meq/L Potassium (3.5-5.1) meq/L Chloride (98-107) meq/L BUN (7-18) mg/dL POC Glucose 125 H (68-110) mg/dl Random Glucose (74-106) mg/dL MTS Gel Crossmatch Short CBC 01/18/18 01/18/18 01/19/18 Range/Units 16:28 20:21 00:36 Hgb 8.1 L 8.2 L 8.6 L (13.0-17.0) gm/dL Hct 23.4 L 23.5 L 25.1 L (39.0-51.0) % 01/19/18 01/19/18 Range/Units 05:56 07:52 Hgb 8.0 L 7.6 L (13.0-17.0) gm/dL Hct 22.8 L 21.4 L (39.0-51.0) % BMP 01/19/18 05:56 Sodium 147 H Potassium 2.7 L* D Chloride 110 H Carbon Dioxide 30.3 BUN 32 H Creatinine 0.81 Calcium 9.1 <Jass Calloway - 01/19/18 14:56> Abnormal lab results 01/17/18 01/17/18 01/17/18 Range/Units 08:51 12:17 13:49 RBC (4.50-5.90) mil/mm3 Hgb 8.9 L (13.0-17.0) gm/dL Hct 26.7 L (39.0-51.0) % MCH (27.0-34.0) pg Chloride (98-107) meq/L BUN (7-18) mg/dL Estimated GFR (>89) mL/min POC Glucose 350 H (68-110) mg/dl Random Glucose (74-106) mg/dL Total Protein (6.4-8.2) g/dL Albumin (3.4-5.0) g/dL MTS Gel Crossmatch See Detail 01/17/18 01/17/18 01/17/18 Range/Units 17:21 19:19 19:35 RBC (4.50-5.90) mil/mm3 Hgb 8.1 L (13.0-17.0) gm/dL Hct 24.2 L (39.0-51.0) % MCH (27.0-34.0) pg Chloride (98-107) meq/L BUN (7-18) mg/dL Estimated GFR (>89) mL/min POC Glucose 331 H 330 H (68-110) mg/dl Random Glucose (74-106) mg/dL Total Protein (6.4-8.2) g/dL Albumin (3.4-5.0) g/dL MTS Gel Crossmatch 01/18/18 01/18/18 01/18/18 Range/Units 03:55 03:56 08:05 RBC 2.08 L (4.50-5.90) mil/mm3 Hgb 7.1 L (13.0-17.0) gm/dL Hct 20.5 L* (39.0-51.0) % MCH 34.2 H (27.0-34.0) pg Chloride (98-107) meq/L BUN (7-18) mg/dL Estimated GFR (>89) mL/min POC Glucose 445 H 398 H (68-110) mg/dl Random Glucose (74-106) mg/dL Total Protein (6.4-8.2) g/dL Albumin (3.4-5.0) g/dL MTS Gel Crossmatch 01/18/18 01/18/18 01/18/18 Range/Units 08:05 08:17 09:27 RBC (4.50-5.90) mil/mm3 Hgb (13.0-17.0) gm/dL Hct (39.0-51.0) % MCH (27.0-34.0) pg Chloride 109 H D (98-107) meq/L BUN 42 H (7-18) mg/dL Estimated GFR 78 L (>89) mL/min POC Glucose 406 H (68-110) mg/dl Random Glucose 337 H D (74-106) mg/dL Total Protein 5.9 L (6.4-8.2) g/dL Albumin 2.6 L (3.4-5.0) g/dL MTS Gel Crossmatch See Detail 01/18/18 Range/Units 11:46 RBC (4.50-5.90) mil/mm3 Hgb (13.0-17.0) gm/dL Hct (39.0-51.0) % MCH (27.0-34.0) pg Chloride (98-107) meq/L BUN (7-18) mg/dL Estimated GFR (>89) mL/min POC Glucose 479 H* (68-110) mg/dl Random Glucose (74-106) mg/dL Total Protein (6.4-8.2) g/dL Albumin (3.4-5.0) g/dL MTS Gel Crossmatch Short CBC 01/17/18 01/17/18 01/18/18 Range/Units 13:49 19:35 08:05 WBC 8.9 (4.0-11.0) th/mm3 Hgb 8.9 L 8.1 L 7.1 L (13.0-17.0) gm/dL Hct 26.7 L 24.2 L 20.5 L* (39.0-51.0) % Plt Count 152 (150-450) th/mm3 BMP 01/18/18 08:05 Sodium 144 Potassium 3.6 Chloride 109 H D Carbon Dioxide 29.0 BUN 42 H Creatinine 0.97 Calcium 9.8 Liver Function 01/18/18 Range/Units 08:05 Total Bilirubin 0.8 (0.2-1.0) mg/dL AST 32 (15-37) U/L ALT 29 (12-78) U/L Alkaline Phosphatase 75 (45-117) U/L Albumin 2.6 L (3.4-5.0) g/dL <Jing Cat U - 01/18/18 11:49> - Imaging Impressions Liver Ultrasound 01/18/18 00:00 CONCLUSION: 1. There is increased echogenicity throughout the liver parenchyma suggestive of fatty infiltration. No evidence of biliary tract obstruction. 2. Mild splenomegaly. <Jing Cat U - 01/18/18 11:49> Physical Exam Vital signs: Vital Signs 01/18/18 20:00 01/19/18 00:00 01/19/18 04:00 Temperature 98.0 F 97.3 F L 97.5 F L Pulse Rate 92 H 96 H 94 H Respiratory Rate 20 19 18 Blood Pressure 94/51 L 138/62 120/56 L Pulse Oximetry 96 93 L 96 01/19/18 08:00 01/19/18 08:34 01/19/18 12:30 Temperature 98.3 F 98.8 F Pulse Rate 96 H 95 H 83 Respiratory Rate 16 18 Blood Pressure 111/59 L 111/56 L Pulse Oximetry 95 95 96 Intake & Output 01/18/18 01/19/18 01/19/18 18:59 06:59 18:59 Intake Total 2300 / 2300 30 / 30 100 / 100 Balance 2300 / 2300 30 / 30 100 / 100 Weight 118.3 kg Intake: IV 30 / 30 100 / 100 KCl 20 mEq Premix Inj 20 meq In 100 / 100 100 ml @ 50 mls/hr IV.SIG ONCE ONE Rx#:[id number] NS Inj 250 ML @ 15 mls/hr IV. 30 / 30 SIG ONCE YUSRA Rx#:[id number] Oral 1400 / 1400 Other 100 / 100 Rbc As-3 Leukoreduced Unit 100 / 100 [id number] Intake (Blood Product) Amt 800 / 800 Rbc As-3 Leukoreduced Unit 400 / 400 [id number] Rbc As-3 Leukoreduced Unit 400 / 400 [id number] Other: # Voids 3 3 Date of Last Bowel Movement 01/18/18 01/18/18 01/19/18 # Bowel Movements 3 2 <Jass Calloway - 01/19/18 14:56> Vital Signs 01/17/18 12:18 01/17/18 13:21 01/17/18 14:02 Temperature 98.3 F 98.1 F Pulse Rate 110 H 113 H Respiratory Rate 21 23 Blood Pressure 109/52 L 121/55 L Pulse Oximetry 95 96 94 L 01/17/18 15:55 01/17/18 20:00 01/18/18 00:00 Temperature 98.5 F 99.1 F 97.9 F Pulse Rate 107 H 114 H 112 H Respiratory Rate 18 18 17 Blood Pressure 119/57 L 114/53 L 132/60 Pulse Oximetry 94 L 93 L 93 L 01/18/18 00:55 01/18/18 04:00 12/02/18 04:09 Temperature 98.7 F Pulse Rate 95 H 111 H 111 H Respiratory Rate 18 Blood Pressure 122/64 Pulse Oximetry 94 L 01/18/18 08:00 01/18/18 11:45 Temperature 98.5 F 98.5 F Pulse Rate 112 H 104 H Respiratory Rate 16 16 Blood Pressure 126/63 106/55 L Pulse Oximetry 92 L 95 Intake & Output 01/17/18 01/18/18 01/18/18 18:59 06:59 18:59 Intake Total 1999 330 / 330 0 / 0 Balance 1999 330 330 0 / 0 Weight 117.48 kg 117.7 kg Intake: IV 1999 NS Inj 1,000 ML @ 1000 mls/hr 1999 IV.SIG BOLUS YUSRA Rx#:[id number] Oral Intake (Blood Product) Amt 0 Rbc As-3 Leukoreduced Unit [id number] Other: # Voids 3 3 Date of Last Bowel Movement 01/17/18 # Bowel Movements 1 1 <Jing Cat U - 01/18/18 11:49> Narrative: GENERAL: Laying in bed, resting comfortably. SKIN: Warm and dry. HEAD: Atraumatic. Normocephalic. EYES: PERRLA. No scleral icterus. No injection or drainage. ENT: No nasal bleeding or discharge. Mucous membranes pink and moist. Poor dentition. NECK: Trachea midline. No JVD. CARDIOVASCULAR: Regular rate and rhythm. RESPIRATORY: No accessory muscle use. Clear to auscultation. Breath sounds equal bilaterally. GASTROINTESTINAL: Abdomen very obese, soft, non-tender, nondistended. MUSCULOSKELETAL: Extremities without clubbing, cyanosis, or edema. No obvious deformities. NEUROLOGICAL: Awake and alert. No obvious cranial nerve deficits. Motor grossly within normal limits. Five out of 5 muscle strength in the arms and legs. Mildly dysarthric, patient reports baseline. PSYCHIATRIC: Appropriate mood and affect; insight and judgment normal. 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 Hemoglobin 9.1 on admission is down to 7.1/20.5 this am. -GI was consulted GI and plans for possible endoscopy and/or colonoscopy -Transfuse 2 units leukoreduced RBCs; hold 4 units -Monitor H&H Q4h (2) Anemia Code(s): D64.9 - Anemia, unspecified Status: Acute Plan: See plan for GI bleed above Consider iron supplementation on discharge (3) Diabetes Code(s): E11.9 - Type 2 diabetes mellitus without complications Status: Acute Plan: Glucose 595 on admission -Has required 34 units of SSI in the last 24 hours -Continue home long-acting insulin of 35 units subq BID -Switch to high-dose sliding scale insulin -IV hydration if needed after blood transfusion (4) Hypothyroid Code(s): E03.9 - Hypothyroidism, unspecified Status: Acute Plan: History of hypothyroidism. 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 Used to take testosterone outpatient until recent CVA. -Outpatient testosterone held (6) Hypertension Code(s): I10 - Essential (primary) hypertension Status: Acute Plan: History of hypertension -Continue lisinopril 40 mg daily (7) Dyslipidemia Code(s): E78.5 - Hyperlipidemia, unspecified Status: Acute Plan: Continue Atorvastatin 40mg daily (8) Depression Code(s): F32.9 - Major depressive disorder, single episode, unspecified Status : Acute Plan: History of depression. -Continue home medications, venlafaxine 150 mg, mirtazapine 30 mg <Jing Cat - 01/18/18 13:00> - Assessment and Plan Discussed Condition With: Seen and examined with Dr. Calloway (attending), Dr. Richardson - PGY2, and Dr. Morales - PGY-1 <Jing Cat - 01/18/18 12:59> Discharge Planning: Discharge pending GI recommendations <Jing Cat - 01/18/18 12:59> - Attending Attestation See the residents documentation for details. I saw and evaluated the patient regarding the vogel portions of this evaluation and agree with the residents findings and plans as written. Parts of this note were created using [employer] voice recognition software program. While efforts were made to correct any mistakes made by this software, some mistakes, errors, and omissions may remain in the final note that were not caught when the note was originally created. Plan of care was discussed and agreed upon with the patient as specifically documented in the above note. An opportunity to ask questions with explanation was provided. Patient voiced understanding on all information reviewed and discussed. <Jass Calloway - 01/19/18 14:56>
[2018-01-18 14:16] LABS: Hematocrit 19.2 % (39.0-51.0); Hemoglobin 6.5 gm/dL (13.0-17.0)
[2018-01-18 14:30] LABS: Hemoglobin A1c 8.4 % (4.3-6.0)
[2018-01-18] MEDS ORDERED: PEG 3350/E-Lyte Soln 4000 ML Bottle PO ONE (16:00)
[2018-01-18 16:46] LABS: Hematocrit 23.4 % (39.0-51.0); Hemoglobin 8.1 gm/dL (13.0-17.0)
[2018-01-18] MEDS: amLODIPine 5 MG Tablet PO SCH (20:16)
[2018-01-18] MEDS: Mirtazapine 15 MG Tablet PO SCH (20:17)
[2018-01-18 20:39] LABS: Hematocrit 23.5 % (39.0-51.0); Hemoglobin 8.2 gm/dL (13.0-17.0)
[2018-01-19 01:06] LABS: Hematocrit 25.1 % (39.0-51.0); Hemoglobin 8.6 gm/dL (13.0-17.0)
[2018-01-19] MEDS ORDERED: Chlorhexidine Gluconate 2% 1 Pack (2 Cloths) TOPICAL ONE (02:43)
[2018-01-19] MEDS: Insulin NovoLOG Aspart Correctional Sugar Inj SQ SCH ×5 (03:43→22:44)
[2018-01-19] MEDS: Levothyroxine 112 MCG Tablet PO SCH (05:19)
[2018-01-19 06:31] LABS: Hematocrit 22.8 % (39.0-51.0)
[2018-01-19 07:07] LABS: Anion Gap 7 meq/L (5-15); Blood Urea Nitrogen 32 mg/dL (7-18); Calcium 9.1 mg/dL (8.5-10.1); Carbon Dioxide 30.3 meq/L (21.0-32.0); Chloride 110 meq/L (98-107); Glomerular Filtration Rate Greater Than 89 mL/min (>89); Glucose,Random 113 mg/dL (74-106); Sodium 147 meq/L (136-145)
[2018-01-19 07:14] LABS: Potassium 2.7 meq/L (3.5-5.1)
[2018-01-19 08:22] LABS: Hematocrit 21.4 % (39.0-51.0); Hemoglobin 7.6 gm/dL (13.0-17.0)
[2018-01-19] MEDS: Carvedilol 12.5 MG Tablet PO SCH ×2 (08:34→22:52)
[2018-01-19] MEDS: Lisinopril 20 MG Tablet PO SCH (08:34)
[2018-01-19] MEDS: Venlafaxine XR 75 MG Capsule PO SCH (08:34)
[2018-01-19] MEDS: Gabapentin 300 MG Capsule PO SCH ×3 (08:34→17:51)
[2018-01-19] MEDS: Topiramate 25 MG Tablet PO SCH (08:34)
[2018-01-19] MEDS: Furosemide 40 MG Tablet PO SCH (08:34)
[2018-01-19] MEDS: Insulin Detemir Inj 1,000 UNIT/10 ML Vial SQ SCH ×2 (08:35→22:44)
[2018-01-19] MEDS ORDERED: Potassium Chloride 25 MEQ Effervescent Tablet PO ONE (08:45)
[2018-01-19] MEDS ORDERED: Potassium Chlor 20 mEq Premix 20 MEQ/100 ML PIGGYBACK IV.SIG ONE (09:00)
[2018-01-19] MEDS: Pantoprazole Inj 40 MG Vial IV.PUSH SCH ×2 (09:10→22:52)
--- NOTE | 2018-01-19 12:27 | GIPROC ---
[facility] [address] [facility]. [facility], [address] COLONOSCOPY PROCEDURE REPORT EXAM DATE: 01/19/2018 PATIENT NAME: Ld Elizalde MR #: [id number] BIRTHDATE: 1955 ENDOSCOPIST: Miguel Angel Moreau MD ORDER #: [id number] LAB REP: Ayanna Varghese and Halley Jarvis STATUS: inpatient INDICATIONS: The patient is a 62 yr old male here for a colonoscopy due to iron deficiency anemia, hematochezia, and melena PROCEDURE PERFORMED: Colonoscopy, diagnostic MEDICATIONS: Per Anesthesia and None. PREP QUALITY: poor ESTIMATED BLOOD LOSS: None CONSENT: The patient understands the risks and benefits of the procedure and understands that these risks include, but are not limited to: sedation, allergic reaction, infection, perforation and/or bleeding. Alternative means of evaluation and treatment include, among others: physical exam, x-rays, and/or surgical intervention. The patient elects to proceed with this endoscopic procedure. medical equipment was checked for proper function. Hand hygiene and appropriate measures for infection prevention was taken. After the risks, benefits and alternatives of the procedure were thoroughly explained, Informed consent was verified, confirmed and timeout was successfully executed by the treatment team. A digital exam was performed and revealed no abnormalities of the rectum The Pentax EC-3490Li endoscope was introduced through the anus and advanced to the cecum, which was identified by both the appendix and ileocecal valve. The instrument was then slowly withdrawn as the colon was fully examined. COLON FINDINGS: Moderate diverticulosis was noted throughout the entire examined colon. The colonic mucosa appeared normal throughout the entire examined colon. Small blood clots seen. Two medium sized sessile polyps were found in the descending colon and ascending colon. Retroflexion was not performed The scope was then completely withdrawn from the patient and the procedure terminated. PROCEDURE WITHDRAWAL TIME:15minutes ADVERSE EVENTS: There were no complications. IMPRESSIONS: 1. Moderate diverticulosis was noted throughout the entire examined colon 2. The colonic mucosa appeared normal throughout the entire examined colon 3. Small blood clots seen 4. Retroflexion was not performed 5. Was performed 6. Revealed no abnormalities of the rectum RECOMMENDATIONS: Schedule colonoscopy for polypectomy in 3 months as OP RECALL: Return 3 months Colonoscopy Miguel Angel Moreau MD eSigned: Miguel Angel Moreau MD 01/19/2018 12:26 PM cc: PATIENT NAME: Ld Elizalde MR#: [id number]
--- NOTE | 2018-01-19 12:35 | GIPROC ---
[facility] [address] [facility]. [facility], [address] EGD PROCEDURE REPORT EXAM DATE: 01/19/2018 PATIENT NAME: Ld Elizalde MR #: [id number] BIRTHDATE: 1955 ATTENDING: Miguel Angel Moreau MD ORDER #: [id number] FRONT DESK AUXILIARY: Ayanna Varghese and Halley Jarvis STATUS: inpatient INDICATIONS: The patient is a 62 yr old male here for an EGD due to acute post hemorrhagic anemia, hematochezia, and melena PROCEDURE PERFORMED: EGD w/ band ligation of varices MEDICATIONS: Per Anesthesia and None. TOPICAL ANESTHETIC: none CONSENT: The patient understands the risks and benefits of the procedure and understands that these risks include, but are not limited to: sedation, allergic reaction, infection, perforation and/or bleeding. Alternative means of evaluation and treatment include, among others: physical exam, x-rays, and/or surgical intervention. The patient elects to proceed with this endoscopic procedure. medical equipment was checked for proper function. Hand hygiene and appropriate measures for infection prevention was taken. After the risks, benefits and alternatives of the procedure were thoroughly explained, Informed consent was verified, confirmed and timeout was successfully executed by the treatment team. The patient was anesthetized with topical anesthesia and the EC-3490Li (Pedi C) endoscope was introduced through the mouth and advanced to the second portion of the duodenum. Retroflexed views revealed a hiatal hernia The gastroscope was then slowly withdrawn and removed. ESOPHAGUS: 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 The varices were not bleeding. There was evidence of prior scarring. ADVERSE EVENTS: There were no complications. IMPRESSIONS: Retroflexed views revealed a hiatal hernia RECOMMENDATIONS: 1. Colonoscopy 2. IV Octreotide PO Nadolol PATIENT CONDITION: stable DISPOSITION: Inpatient REPEAT EXAM: Miguel Angel Moreau MD eSigned: Miguel Angel Moreau MD 01/19/2018 12:35 PM cc: PATIENT NAME: Ld Elizalde MR#: [id number]
[2018-01-19] MEDS ORDERED: Octreotide Inj 50 MCG/ML Vial IV.PUSH ONE (14:26)
--- NOTE | 2018-01-19 14:31 | ECG ---
Date Performed: 01/17/2018 Time Performed: 16:26:16 PTAGE: 62 years EKG: SINUS TACHYCARDIA INCOMPLETE RIGHT BUNDLE BRANCH BLOCK NONSPECIFIC ST & T-WAVE ABNORMALITY ABNORMAL RHYTHM ECG Compared to PREVIOUS TRACING rate has increased since prior tracing with more prominent T wave horn es PREVIOUS TRACIN12/25/2017 04.01 DOCTOR: Jama Pearza Interpretating Date/Time 01/19/2018 14:30:21
--- NOTE | 2018-01-19 15:04 | P.PNFP ---
Subjective Interval history: Patient seen and examined today. Patient reports one bowel movement last night with small specks of blood in it. Denies nausea or vomiting. No further hematemesis. Denies fever, chills, abdominal pain, chest pain, lightheadedness, dizziness. Reports there is getting up walking around with PT without significant difficulty. No other complaints today. No other acute events overnight. <DebraEber - 01/19/18 15:04> Results - Labs Result diagrams: 01/21/18 04:17 01/21/18 04:17 <Jass Calloway - 01/21/18 11:59> Abnormal lab results 01/20/18 01/20/18 01/21/18 Range/Units 17:49 20:51 03:40 RBC (4.50-5.90) mil/mm3 Hgb (13.0-17.0) gm/dL Hct (39.0-51.0) % Sodium (136-145) meq/L Potassium (3.5-5.1) meq/L Chloride (98-107) meq/L POC Glucose 283 H 254 H 43 L* (68-110) mg/dl Calcium (8.5-10.1) mg/dL 01/21/18 01/21/18 01/21/18 Range/Units 04:06 04:17 04:17 RBC 2.46 L (4.50-5.90) mil/mm3 Hgb 8.4 L (13.0-17.0) gm/dL Hct 23.5 L (39.0-51.0) % Sodium 146 H (136-145) meq/L Potassium 2.7 L* (3.5-5.1) meq/L Chloride 110 H (98-107) meq/L POC Glucose 113 H (68-110) mg/dl Calcium 8.1 L (8.5-10.1) mg/dL 01/21/18 Range/Units 07:56 RBC (4.50-5.90) mil/mm3 Hgb (13.0-17.0) gm/dL Hct (39.0-51.0) % Sodium (136-145) meq/L Potassium (3.5-5.1) meq/L Chloride (98-107) meq/L POC Glucose 200 H (68-110) mg/dl Calcium (8.5-10.1) mg/dL Short CBC 01/21/18 Range/Units 04:17 WBC 8.7 (4.0-11.0) th/mm3 Hgb 8.4 L (13.0-17.0) gm/dL Hct 23.5 L (39.0-51.0) % Plt Count 150 (150-450) th/mm3 BMP 01/21/18 04:17 Sodium 146 H Potassium 2.7 L* Chloride 110 H Carbon Dioxide 28.7 BUN 12 Creatinine 0.74 Calcium 8.1 L <Jass Calloway - 01/21/18 11:59> Abnormal lab results 01/17/18 01/18/18 01/18/18 Range/Units 08:51 16:28 16:37 Hgb 8.1 L (13.0-17.0) gm/dL Hct 23.4 L (39.0-51.0) % Sodium (136-145) meq/L Potassium (3.5-5.1) meq/L Chloride (98-107) meq/L BUN (7-18) mg/dL POC Glucose 381 H (68-110) mg/dl Random Glucose (74-106) mg/dL MTS Gel Crossmatch See Detail 01/18/18 01/18/18 01/19/18 Range/Units 20:19 20:21 00:36 Hgb 8.2 L 8.6 L (13.0-17.0) gm/dL Hct 23.5 L 25.1 L (39.0-51.0) % Sodium (136-145) meq/L Potassium (3.5-5.1) meq/L Chloride (98-107) meq/L BUN (7-18) mg/dL POC Glucose 267 H (68-110) mg/dl Random Glucose (74-106) mg/dL MTS Gel Crossmatch 01/19/18 01/19/18 01/19/18 Range/Units 05:56 05:56 07:52 Hgb 8.0 L 7.6 L (13.0-17.0) gm/dL Hct 22.8 L 21.4 L (39.0-51.0) % Sodium 147 H (136-145) meq/L Potassium 2.7 L* D (3.5-5.1) meq/L Chloride 110 H (98-107) meq/L BUN 32 H (7-18) mg/dL POC Glucose (68-110) mg/dl Random Glucose 113 H D (74-106) mg/dL MTS Gel Crossmatch 01/19/18 Range/Units 07:55 Hgb (13.0-17.0) gm/dL Hct (39.0-51.0) % Sodium (136-145) meq/L Potassium (3.5-5.1) meq/L Chloride (98-107) meq/L BUN (7-18) mg/dL POC Glucose 125 H (68-110) mg/dl Random Glucose (74-106) mg/dL MTS Gel Crossmatch Short CBC 01/18/18 01/18/18 01/19/18 Range/Units 16:28 20:21 00:36 Hgb 8.1 L 8.2 L 8.6 L (13.0-17.0) gm/dL Hct 23.4 L 23.5 L 25.1 L (39.0-51.0) % 01/19/18 01/19/18 Range/Units 05:56 07:52 Hgb 8.0 L 7.6 L (13.0-17.0) gm/dL Hct 22.8 L 21.4 L (39.0-51.0) % BMP 01/19/18 05:56 Sodium 147 H Potassium 2.7 L* D Chloride 110 H Carbon Dioxide 30.3 BUN 32 H Creatinine 0.81 Calcium 9.1 <Nehemias Richardson - 01/19/18 15:04> Physical Exam Vital signs: Vital Signs 01/20/18 12:00 01/20/18 16:00 01/20/18 20:00 Temperature 97.7 F 99.3 F 96.7 F L Pulse Rate 84 83 87 Respiratory Rate 16 17 18 Blood Pressure 107/58 L 113/59 L 107/55 L Pulse Oximetry 97 93 L 98 01/21/18 00:00 01/21/18 04:00 01/21/18 08:00 Temperature 100 F H 97.1 F L 97.1 F L Pulse Rate 81 73 72 Respiratory Rate 21 20 17 Blood Pressure 140/62 142/67 H 104/51 L Pulse Oximetry 92 L 96 94 L Intake & Output 01/20/18 01/21/18 01/21/18 18:59 06:59 18:59 Intake Total 720.5 / 720.5 1760.5 / 1760.5 500 / 500 Balance 720.5 / 720.5 1760.5 / 1760.5 500 / 500 Weight 118 kg Intake: IV 720.5 / 720.5 1280.5 / 1280.5 500 / 500 SandoSTATIN Inj 500 MCG In NS 720.5 / 720.5 280.5 / 280.5 500 / 500 Inj 500 ML @ 25 MCG/HR 25.02 mls/hr IV.CONT .Q20H1M [facility] Rx#: [id number] Oral 480 / 480 Other: Post Void Residual 4 # Voids 3 Date of Last Bowel Movement 01/20/18 # Bowel Movements 1 <Jass Calloway - 01/21/18 11:59> Vital Signs 01/18/18 20:00 01/19/18 00:00 01/19/18 04:00 Temperature 98.0 F 97.3 F L 97.5 F L Pulse Rate 92 H 96 H 94 H Respiratory Rate 20 19 18 Blood Pressure 94/51 L 138/62 120/56 L Pulse Oximetry 96 93 L 96 01/19/18 08:00 01/19/18 08:34 01/19/18 12:30 Temperature 98.3 F 98.8 F Pulse Rate 96 H 95 H 83 Respiratory Rate 16 18 Blood Pressure 111/59 L 111/56 L Pulse Oximetry 95 95 96 Intake & Output 01/18/18 01/19/18 01/19/18 18:59 06:59 18:59 Intake Total 2300 / 2300 30 / 30 100 / 100 Balance 2300 / 2300 30 / 30 100 / 100 Weight 118.3 kg Intake: IV 30 / 30 100 / 100 KCl 20 mEq Premix Inj 20 meq In 100 / 100 100 ml @ 50 mls/hr IV.SIG ONCE ONE Rx#:[id number] NS Inj 250 ML @ 15 mls/hr IV. 30 / 30 SIG ONCE [facility] Rx#:[id number] Oral 1400 / 1400 Other 100 / 100 Rbc As-3 Leukoreduced Unit 100 / 100 [id number] Intake (Blood Product) Amt 800 / 800 Rbc As-3 Leukoreduced Unit 400 / 400 [id number] Rbc As-3 Leukoreduced Unit 400 / 400 [id number] Other: # Voids 3 3 Date of Last Bowel Movement 01/18/18 01/18/18 01/19/18 # Bowel Movements 3 2 <Nehemias Richardson - 01/19/18 15:04> Narrative: GENERAL: Laying in bed, resting comfortably. SKIN: Warm and dry. HEAD: Atraumatic. Normocephalic. EYES: PERRLA. No scleral icterus. No injection or drainage. ENT: No nasal bleeding or discharge. Mucous membranes pink and moist. Poor dentition. NECK: Trachea midline. No JVD. CARDIOVASCULAR: Regular rate and rhythm. RESPIRATORY: No accessory muscle use. Clear to auscultation. Breath sounds equal bilaterally. GASTROINTESTINAL: Abdomen very obese, soft, non-tender, nondistended. MUSCULOSKELETAL: Extremities without clubbing, cyanosis, or edema. No obvious deformities. NEUROLOGICAL: Awake and alert. No obvious cranial nerve deficits. Motor grossly within normal limits. PSYCHIATRIC: Appropriate mood and affect; insight and judgment normal. 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 Hemoglobin 9.1 on admission is down to 7.1/20.5 this am. -GI was consulted, f/u endoscopy and colonoscopy -Transfused 2 units leukoreduced RBCs; hold 4 units -Monitor H&H (2) Anemia Code(s): D64.9 - Anemia, unspecified Status: Acute Plan: See plan for GI bleed above Consider iron supplementation on discharge (3) Diabetes Code(s): E11.9 - Type 2 diabetes mellitus without complications Status: Acute Plan: Glucose 595 on admission -Has required 34 units of SSI in the last 24 hours -Continue home long-acting insulin of 35 units subq BID -Switch to high-dose sliding scale insulin -IV hydration if needed after blood transfusion (4) Hypothyroid Code(s): E03.9 - Hypothyroidism, unspecified Status: Acute Plan: History of hypothyroidism. 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 Used to take testosterone outpatient until recent CVA. -Outpatient testosterone held (6) Hypertension Code(s): I10 - Essential (primary) hypertension Status: Acute Plan: History of hypertension -Continue lisinopril 40 mg daily (7) Dyslipidemia Code(s): E78.5 - Hyperlipidemia, unspecified Status: Acute Plan: Continue Atorvastatin 40mg daily (8) Depression Code(s): F32.9 - Major depressive disorder, single episode, unspecified Status : Acute Plan: History of depression. -Continue home medications, venlafaxine 150 mg, mirtazapine 30 mg <Nehemias Richardson - 01/19/18 14:45> - Attending Attestation See the residents documentation for details. I saw and evaluated the patient regarding the vogel portions of this evaluation and agree with the residents findings and plans as written. Parts of this note were created using [employer] voice recognition software program. While efforts were made to correct any mistakes made by this software, some mistakes, errors, and omissions may remain in the final note that were not caught when the note was originally created. Plan of care was discussed and agreed upon with the patient as specifically documented in the above note. An opportunity to ask questions with explanation was provided. Patient voiced understanding on all information reviewed and discussed. <Jass Calloway - 01/21/18 11:59>
[2018-01-19] MEDS: Nadolol 40 MG Tablet PO SCH (15:34)
[2018-01-19] MEDS: Octreotide Inj 500 MCG in Sodium Chlor 0.9% Inj 500 ML IV.CONT SCH (15:37)
[2018-01-19 15:40] LABS: Hematocrit 26.9 % (39.0-51.0); Hemoglobin 9.4 gm/dL (13.0-17.0)
[2018-01-19 21:11] LABS: Hematocrit 24.6 % (39.0-51.0); Hemoglobin 8.2 gm/dL (13.0-17.0)
[2018-01-19] MEDS: Mirtazapine 15 MG Tablet PO SCH (22:52)
[2018-01-19] MEDS: amLODIPine 5 MG Tablet PO SCH (22:52)
[2018-01-20] MEDS: Insulin NovoLOG Aspart Correctional Sugar Inj SQ SCH ×5 (02:49→20:54)
[2018-01-20 04:31] LABS: Hematocrit 23.2 % (39.0-51.0); Mean Corpuscular HGB Conc 34.6 % (32.0-36.0); Mean Corpuscular Hemoglobin 33.3 pg (27.0-34.0); Mean Corpuscular Volume 96.3 fL (80.0-100.0); Mean Platelet Volume 7.9 fL (7.0-11.0); Platelet Count 124 th/mm3 (150-450); Red Cell Distribution Width 15.8 % (11.6-17.2); White Blood Count 5.9 th/mm3 (4.0-11.0)
[2018-01-20 04:52] LABS: Albumin 2.7 g/dL (3.4-5.0); Anion Gap 5 meq/L (5-15); Aspartate Aminotransferase 68 U/L (15-37); Blood Urea Nitrogen 21 mg/dL (7-18); Carbon Dioxide 31.5 meq/L (21.0-32.0); Chloride 113 meq/L (98-107); Glomerular Filtration Rate Greater Than 89 mL/min (>89); Glucose,Random 75 mg/dL (74-106); Magnesium 1.7 mg/dL (1.5-2.5); Sodium 149 meq/L (136-145)
[2018-01-20 04:57] LABS: Alanine Aminotransferase 31 U/L (12-78); Alkaline Phosphatase 60 U/L (45-117); Total Protein 6.2 g/dL (6.4-8.2)
[2018-01-20] MEDS: Levothyroxine 112 MCG Tablet PO SCH (06:23)
[2018-01-20 06:55] LABS: Eosinophils 5 % (0-4); Lymphocytes 33 % (9-44); Monocytes 3 % (0-8); Platelet Morphology Normal (Normal); Tallied Nucleated RBC 1 (0-0)
[2018-01-20] MEDS: Venlafaxine XR 75 MG Capsule PO SCH (09:18)
[2018-01-20] MEDS: Carvedilol 12.5 MG Tablet PO SCH (09:19)
[2018-01-20] MEDS: Pantoprazole Inj 40 MG Vial IV.PUSH SCH ×2 (09:19→20:53)
[2018-01-20] MEDS: Nadolol 40 MG Tablet PO SCH (09:19)
[2018-01-20] MEDS: Gabapentin 300 MG Capsule PO SCH ×3 (09:19→17:57)
[2018-01-20] MEDS: Topiramate 25 MG Tablet PO SCH (09:19)
[2018-01-20] MEDS: Furosemide 40 MG Tablet PO SCH (09:20)
[2018-01-20] MEDS: Insulin Detemir Inj 1,000 UNIT/10 ML Vial SQ SCH ×2 (09:21→20:53)
[2018-01-20] MEDS: Lisinopril 20 MG Tablet PO SCH (09:29)
[2018-01-20] MEDS: Octreotide Inj 500 MCG in Sodium Chlor 0.9% Inj 500 ML IV.CONT SCH (11:26)
--- NOTE | 2018-01-20 12:42 | P.PNFP ---
Subjective Interval history: There were no acute events overnight. He does have some symptoms of indigestion that are new today. He has had one bowel movement since he EGD and colonoscopy. He denies any blood or black in that bowel movement. He has had no further nausea or vomiting. He denies fever, chills, lightheadedness, dizziness, chest pain, palpitations, and abdominal pain. <Deacon Morales - 01/20/18 14:44> Results - Labs Result diagrams: 01/21/18 04:17 01/21/18 04:17 <Jass Calloway - 01/21/18 13:48> Abnormal lab results 01/20/18 01/20/18 01/21/18 Range/Units 17:49 20:51 03:40 RBC (4.50-5.90) mil/mm3 Hgb (13.0-17.0) gm/dL Hct (39.0-51.0) % Sodium (136-145) meq/L Potassium (3.5-5.1) meq/L Chloride (98-107) meq/L POC Glucose 283 H 254 H 43 L* (68-110) mg/dl Calcium (8.5-10.1) mg/dL 01/21/18 01/21/18 01/21/18 Range/Units 04:06 04:17 04:17 RBC 2.46 L (4.50-5.90) mil/mm3 Hgb 8.4 L (13.0-17.0) gm/dL Hct 23.5 L (39.0-51.0) % Sodium 146 H (136-145) meq/L Potassium 2.7 L* (3.5-5.1) meq/L Chloride 110 H (98-107) meq/L POC Glucose 113 H (68-110) mg/dl Calcium 8.1 L (8.5-10.1) mg/dL 01/21/18 Range/Units 07:56 RBC (4.50-5.90) mil/mm3 Hgb (13.0-17.0) gm/dL Hct (39.0-51.0) % Sodium (136-145) meq/L Potassium (3.5-5.1) meq/L Chloride (98-107) meq/L POC Glucose 200 H (68-110) mg/dl Calcium (8.5-10.1) mg/dL Short CBC 01/21/18 Range/Units 04:17 WBC 8.7 (4.0-11.0) th/mm3 Hgb 8.4 L (13.0-17.0) gm/dL Hct 23.5 L (39.0-51.0) % Plt Count 150 (150-450) th/mm3 BMP 01/21/18 04:17 Sodium 146 H Potassium 2.7 L* Chloride 110 H Carbon Dioxide 28.7 BUN 12 Creatinine 0.74 Calcium 8.1 L <Jass Calloway - 01/21/18 13:48> Abnormal lab results 01/18/18 01/19/18 01/19/18 Range/Units 09:27 15:10 16:57 RBC (4.50-5.90) mil/mm3 Hgb 9.4 L (13.0-17.0) gm/dL Hct 26.9 L (39.0-51.0) % Plt Count (150-450) th/mm3 Eosinophils % (Manual) (0-4) % Nucleated RBCs/100 WBC (0-0) /100 WBC Platelet Estimate (Normal) Sodium (136-145) meq/L Potassium (3.5-5.1) meq/L Chloride (98-107) meq/L BUN (7-18) mg/dL POC Glucose 126 H (68-110) mg/dl Calcium (8.5-10.1) mg/dL AST (15-37) U/L Total Protein (6.4-8.2) g/dL Albumin (3.4-5.0) g/dL MTS Gel Crossmatch See Detail 01/19/18 01/19/18 01/20/18 Range/Units 20:53 22:44 04:15 RBC 2.40 L (4.50-5.90) mil/mm3 Hgb 8.2 L 8.0 L (13.0-17.0) gm/dL Hct 24.6 L 23.2 L (39.0-51.0) % Plt Count 124 L (150-450) th/mm3 Eosinophils % (Manual) 5 H (0-4) % Nucleated RBCs/100 WBC 1 H (0-0) /100 WBC Platelet Estimate Low L (Normal) Sodium (136-145) meq/L Potassium (3.5-5.1) meq/L Chloride (98-107) meq/L BUN (7-18) mg/dL POC Glucose 135 H (68-110) mg/dl Calcium (8.5-10.1) mg/dL AST (15-37) U/L Total Protein (6.4-8.2) g/dL Albumin (3.4-5.0) g/dL MTS Gel Crossmatch 01/20/18 01/20/18 01/20/18 Range/Units 04:15 11:24 11:25 RBC (4.50-5.90) mil/mm3 Hgb (13.0-17.0) gm/dL Hct (39.0-51.0) % Plt Count (150-450) th/mm3 Eosinophils % (Manual) (0-4) % Nucleated RBCs/100 WBC (0-0) /100 WBC Platelet Estimate (Normal) Sodium 149 H (136-145) meq/L Potassium 3.0 L (3.5-5.1) meq/L Chloride 113 H (98-107) meq/L BUN 21 H (7-18) mg/dL POC Glucose 304 H 282 H (68-110) mg/dl Calcium 8.0 L D (8.5-10.1) mg/dL AST 68 H (15-37) U/L Total Protein 6.2 L (6.4-8.2) g/dL Albumin 2.7 L (3.4-5.0) g/dL MTS Gel Crossmatch Short CBC 01/19/18 01/19/18 01/20/18 Range/Units 15:10 20:53 04:15 WBC 5.9 (4.0-11.0) th/mm3 Hgb 9.4 L 8.2 L 8.0 L (13.0-17.0) gm/dL Hct 26.9 L 24.6 L 23.2 L (39.0-51.0) % Plt Count 124 L (150-450) th/mm3 BMP 01/20/18 04:15 Sodium 149 H Potassium 3.0 L Chloride 113 H Carbon Dioxide 31.5 BUN 21 H Creatinine 0.83 Calcium 8.0 L D Liver Function 01/20/18 Range/Units 04:15 Total Bilirubin 0.6 (0.2-1.0) mg/dL AST 68 H (15-37) U/L ALT 31 (12-78) U/L Alkaline Phosphatase 60 (45-117) U/L Albumin 2.7 L (3.4-5.0) g/dL <TimomikeyWingDeacon J - 01/20/18 12:41> Physical Exam Vital signs: Vital Signs 01/20/18 16:00 01/20/18 20:00 01/21/18 00:00 Temperature 99.3 F 96.7 F L 100 F H Pulse Rate 83 87 81 Respiratory Rate 17 18 21 Blood Pressure 113/59 L 107/55 L 140/62 Pulse Oximetry 93 L 98 92 L 01/21/18 04:00 01/21/18 08:00 01/21/18 12:00 Temperature 97.1 F L 97.1 F L 97.9 F Pulse Rate 73 72 87 Respiratory Rate 20 17 17 Blood Pressure 142/67 H 104/51 L 109/65 Pulse Oximetry 96 94 L 99 Intake & Output 01/20/18 01/21/18 01/21/18 18:59 06:59 18:59 Intake Total 720.5 / 720.5 1760.5 / 1760.5 500 / 500 Balance 720.5 / 720.5 1760.5 / 1760.5 500 / 500 Weight 118 kg Intake: IV 720.5 / 720.5 1280.5 / 1280.5 500 / 500 SandoSTATIN Inj 500 MCG In NS 720.5 / 720.5 280.5 / 280.5 500 / 500 Inj 500 ML @ 25 MCG/HR 25.02 mls/hr IV.CONT .Q20H1M [facility] Rx#: [id number] Oral 480 / 480 Other: Post Void Residual 4 # Voids 3 Date of Last Bowel Movement 01/20/18 # Bowel Movements 1 <Jass Calloway - 01/21/18 13:48> Vital Signs 01/19/18 12:30 01/19/18 16:00 01/19/18 17:50 Temperature 98.8 F 99.6 F Pulse Rate 83 83 Respiratory Rate 18 16 Blood Pressure 111/56 L 124/67 Pulse Oximetry 96 95 95 01/19/18 20:00 01/20/18 00:00 01/20/18 04:00 Temperature 99.4 F 98.8 F Pulse Rate 82 82 75 Respiratory Rate 20 18 20 Blood Pressure 141/82 H 137/71 126/59 L Pulse Oximetry 96 93 L 93 L 01/20/18 08:00 Temperature 99.4 F Pulse Rate 75 Respiratory Rate 18 Blood Pressure 108/53 L Pulse Oximetry Intake & Output 01/19/18 01/20/18 01/20/18 18:59 06:59 18:59 Intake Total 100 / 100 380 / 380 500.5 / 500.5 Balance 100 / 100 380 / 380 500.5 / 500.5 Weight 118 kg Intake: IV 100 / 100 500.5 / 500.5 SandoSTATIN Inj 500 MCG In NS 500.5 / 500.5 Inj 500 ML @ 25 MCG/HR 25.02 mls/hr IV.CONT .Q20H1M [facility] Rx#: [id number] KCl 20 mEq Premix Inj 20 meq In 100 / 100 100 ml @ 50 mls/hr IV.SIG ONCE ONE Rx#:[id number] Oral 380 / 380 Other: # Voids 3 Date of Last Bowel Movement 01/19/18 01/19/18 <Deacon Morales - 01/20/18 12:41> Narrative: General: Well-developed, alert, and in no acute distress. Skin: Warm and dry HEENT: Atraumatic, moist mucous membranes, poor dentition Neck: Supple, non-tender without masses or lymphadenopathy, trachea midline Cardiac: Regular rate and rhythm without murmur or gallops Pulmonary: Non-labored breathing. Lungs clear to auscultation bilaterally with good air movement Abdomen: Obese abdomen. 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 Hemoglobin 9.1 on admission, currently 8.0. Gastroenterology was consulted. He was transfused 2 units of PRBCs. He is now status post colonoscopy and endoscopy. 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 -Continue to monitor H&H -Oral iron and vitamin C supplementation to improve absorption -IV octreotide per GI -Twice daily IV Protonix (2) Anemia Code(s): D64.9 - Anemia, unspecified Status: Acute Plan: See plan for GI bleed above (3) Diabetes Code(s): E11.9 - Type 2 diabetes mellitus without complications Status: Chronic Plan: His glucose was under adequate control yesterday, however today his glucose has been 75, 304, and 282. -35 units of Levemir twice daily (morning dose was held yesterday due to n.p.o. status) -Continue high-dose sliding scale insulin (4) Hypothyroid Code(s): E03.9 - Hypothyroidism, unspecified Status: Acute Plan: History of hypothyroidism. 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 Used to take testosterone outpatient until recent CVA. -Outpatient testosterone held (6) Hypertension Code(s): I10 - Essential (primary) hypertension Status: Acute Plan: History of hypertension Blood pressure this morning was 108/53 and his blood pressure medications were held -Continue lisinopril 40 mg daily -Continue amlodipine 5 mg daily -Continue carvedilol 12.5 mg twice daily -Continue Lasix 40 mg p.o. daily (7) Dyslipidemia Code(s): E78.5 - Hyperlipidemia, unspecified Status: Acute Plan: Continue Atorvastatin 40mg daily (8) Depression Code(s): F32.9 - Major depressive disorder, single episode, unspecified Status : Acute Plan: History of depression. -Continue home medications, venlafaxine 150 mg, mirtazapine 30 mg <Deacon Morales - 01/20/18 14:43> - Assessment and Plan Fluids: Adequate p.o. intake Electrolytes: monitor and replete as needed Nutrition: Liquid diet at this time per GI GI prophylaxis: not indicated VTE prophylaxis: Bilateral SCDs, pharmacologic prophylaxis contraindicated due to active bleeding <Deacon Morales - 01/20/18 14:44> - Attending Attestation See the residents documentation for details. I saw and evaluated the patient regarding the vogel portions of this evaluation and agree with the residents findings and plans as written. Parts of this note were created using [employer] voice recognition software program. While efforts were made to correct any mistakes made by this software, some mistakes, errors, and omissions may remain in the final note that were not caught when the note was originally created. Plan of care was discussed and agreed upon with the patient as specifically documented in the above note. An opportunity to ask questions with explanation was provided. Patient voiced understanding on all information reviewed and discussed. <Jass Calloway - 01/21/18 13:48>
--- NOTE | 2018-01-20 12:58 | P.PNGI ---
Subjective Interval history: Patient resting in bed Family at bedside Patient endorsing mild intermittent indigestion Denies any nausea vomiting or noted bleeding Physical Exam Vital signs: Vital Signs 01/19/18 16:00 01/19/18 17:50 01/19/18 20:00 Temperature 99.6 F 99.4 F Pulse Rate 83 82 Respiratory Rate 16 20 Blood Pressure 124/67 141/82 H Pulse Oximetry 95 95 96 01/20/18 00:00 01/20/18 04:00 01/20/18 08:00 Temperature 98.8 F 99.4 F Pulse Rate 82 75 75 Respiratory Rate 18 20 18 Blood Pressure 137/71 126/59 L 108/53 L Pulse Oximetry 93 L 93 L Intake & Output 01/19/18 01/20/18 01/20/18 18:59 06:59 18:59 Intake Total 100 / 100 380 / 380 500.5 / 500.5 Balance 100 / 100 380 / 380 500.5 / 500.5 Weight 118 kg Intake: IV 100 / 100 500.5 / 500.5 SandoSTATIN Inj 500 MCG In NS 500.5 / 500.5 Inj 500 ML @ 25 MCG/HR 25.02 mls/hr IV.CONT .Q20H1M [facility] Rx#: [id number] KCl 20 mEq Premix Inj 20 meq In 100 / 100 100 ml @ 50 mls/hr IV.SIG ONCE ONE Rx#:[id number] Oral 380 / 380 Other: # Voids 3 Date of Last Bowel Movement 01/19/18 01/19/18 - Constitutional no acute distress - Routine HEENT Exam Head: Present: normocephalic - Routine Abdominal Exam Present: soft, normoactive bowel sounds. Absent: tenderness - Routine Skin Exam Present: dry, warm - Routine Psychiatric Exam Present: normal affect, cooperative Results - Labs CBC & Chem 7: 01/20/18 04:15 01/20/18 04:15 Laboratory Results - last 24 hr 01/18/18 01/19/18 01/19/18 09:27 15:10 16:57 WBC RBC Hgb 9.4 L Hct 26.9 L MCV MCH MCHC RDW Plt Count MPV Prelim Diff (Auto) WBC Differential Seg Neuts % (Manual) Band Neuts % (Manual) Lymphocytes % (Manual) Monocytes % (Manual) Eosinophils % (Manual) Abs Neuts (Manual) Nucleated RBCs/100 WBC Differential Comment Platelet Estimate Platelet Morphology Sodium Potassium Chloride Carbon Dioxide Anion Gap BUN Creatinine Estimated GFR POC Glucose 126 H Random Glucose Calcium Magnesium Total Bilirubin AST ALT Alkaline Phosphatase Ammonia Total Protein Albumin MTS Gel Crossmatch See Detail 01/19/18 01/19/18 01/20/18 20:53 22:44 02:47 WBC RBC Hgb 8.2 L Hct 24.6 L MCV MCH MCHC RDW Plt Count MPV Prelim Diff (Auto) WBC Differential Seg Neuts % (Manual) Band Neuts % (Manual) Lymphocytes % (Manual) Monocytes % (Manual) Eosinophils % (Manual) Abs Neuts (Manual) Nucleated RBCs/100 WBC Differential Comment Platelet Estimate Platelet Morphology Sodium Potassium Chloride Carbon Dioxide Anion Gap BUN Creatinine Estimated GFR POC Glucose 135 H 86 Random Glucose Calcium Magnesium Total Bilirubin AST ALT Alkaline Phosphatase Ammonia Total Protein Albumin MTS Gel Crossmatch 01/20/18 01/20/18 01/20/18 04:15 04:15 04:15 WBC 5.9 RBC 2.40 L Hgb 8.0 L Hct 23.2 L MCV 96.3 MCH 33.3 MCHC 34.6 RDW 15.8 Plt Count 124 L MPV 7.9 Prelim Diff (Auto) Manual diff required WBC Differential Manual diff final Seg Neuts % (Manual) 54 Band Neuts % (Manual) 5 Lymphocytes % (Manual) 33 Monocytes % (Manual) 3 Eosinophils % (Manual) 5 H Abs Neuts (Manual) 3.5 Nucleated RBCs/100 WBC 1 H Differential Comment . Platelet Estimate Low L Platelet Morphology Normal Sodium 149 H Potassium 3.0 L Chloride 113 H Carbon Dioxide 31.5 Anion Gap 5 BUN 21 H Creatinine 0.83 Estimated GFR Greater than 89 POC Glucose Random Glucose 75 Calcium 8.0 L D Magnesium 1.7 Total Bilirubin 0.6 AST 68 H ALT 31 Alkaline Phosphatase 60 Ammonia 21 Total Protein 6.2 L Albumin 2.7 L MTS Gel Crossmatch 01/20/18 01/20/18 11:24 11:25 WBC RBC Hgb Hct MCV MCH MCHC RDW Plt Count MPV Prelim Diff (Auto) WBC Differential Seg Neuts % (Manual) Band Neuts % (Manual) Lymphocytes % (Manual) Monocytes % (Manual) Eosinophils % (Manual) Abs Neuts (Manual) Nucleated RBCs/100 WBC Differential Comment Platelet Estimate Platelet Morphology Sodium Potassium Chloride Carbon Dioxide Anion Gap BUN Creatinine Estimated GFR POC Glucose 304 H 282 H Random Glucose Calcium Magnesium Total Bilirubin AST ALT Alkaline Phosphatase Ammonia Total Protein Albumin MTS Gel Crossmatch Microbiology 01/17/18 07:45 Blood - Peripheral Aerobic Blood Culture - Preliminary No growth in 3 days 01/17/18 07:45 Blood - Peripheral Anaerobic Blood Culture - Preliminary No growth in 3 days 01/17/18 08:00 Blood - Peripheral Aerobic Blood Culture - Preliminary No growth in 3 days 01/17/18 08:00 Blood - Peripheral Anaerobic Blood Culture - Preliminary No growth in 3 days Assessment and Plan (1) Hemoptysis Status: Acute Code(s): R04.2 - Hemoptysis (2) Hematemesis Status: Acute Code(s): K92.0 - Hematemesis (3) Anemia Status: Acute Code(s): D64.9 - Anemia, unspecified - Plan Hematemesis Anemia 01/19/2018 EGD--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 The varices were not bleeding. There was evidence of prior scarring. 01/19/2018 colonoscopy-- 1. Moderate diverticulosis was noted throughout the entire examined colon 2. The colonic mucosa appeared normal throughout the entire examined colon 3. Small blood clots seen 4. Retroflexion was not performed 5. Was performed 6. Revealed no abnormalities of the rectum --Hemoglobin 8.0 hematocrit 23.2 stable. Patient denies any noted bleeding Plan Clear liquid diet/advance as tolerated Avoid hepatotoxins Avoid anticoagulants and NSAIDs Monitor for bleeding Monitor hemoglobin and hematocrit Continue PPI Supportive care GI will sign off at this time, please notify if needed Patient to follow-up in office for cirrhosis workup and management This patient has been seen by myself and and this note is written on his behalf - Attending Attestation Dr. Moreau
[2018-01-20] MEDS: Ascorbic Acid 500 MG Tablet PO SCH ×2 (17:57→20:52)
[2018-01-20] MEDS: Ferrous Sulfate 325 MG Tablet PO SCH (17:57)
[2018-01-20] MEDS: amLODIPine 5 MG Tablet PO SCH (20:52)
[2018-01-20] MEDS: Mirtazapine 15 MG Tablet PO SCH (20:53)
[2018-01-21] MEDS: Insulin NovoLOG Aspart Correctional Sugar Inj SQ SCH ×4 (04:07→17:21)
[2018-01-21 04:36] LABS: Hematocrit 23.5 % (39.0-51.0); Hemoglobin 8.4 gm/dL (13.0-17.0); Mean Corpuscular HGB Conc 35.6 % (32.0-36.0); Mean Corpuscular Volume 95.5 fL (80.0-100.0); Mean Platelet Volume 8.4 fL (7.0-11.0); Platelet Count 150 th/mm3 (150-450); Red Blood Count 2.46 mil/mm3 (4.50-5.90); Red Cell Distribution Width 15.7 % (11.6-17.2); White Blood Count 8.7 th/mm3 (4.0-11.0)
[2018-01-21 04:43] LABS: Anion Gap 7 meq/L (5-15); Blood Urea Nitrogen 12 mg/dL (7-18); Calcium 8.1 mg/dL (8.5-10.1); Carbon Dioxide 28.7 meq/L (21.0-32.0); Chloride 110 meq/L (98-107); Glomerular Filtration Rate Greater Than 89 mL/min (>89); Glucose,Random 75 mg/dL (74-106); Sodium 146 meq/L (136-145)
[2018-01-21 04:45] LABS: Potassium 2.7 meq/L (3.5-5.1)
[2018-01-21] MEDS: Levothyroxine 112 MCG Tablet PO SCH (06:17)
[2018-01-21] MEDS: Octreotide Inj 500 MCG in Sodium Chlor 0.9% Inj 500 ML IV.CONT SCH ×2 (06:21→10:16)
[2018-01-21] MEDS: Gabapentin 300 MG Capsule PO SCH ×3 (10:05→17:21)
[2018-01-21] MEDS: Pantoprazole Inj 40 MG Vial IV.PUSH SCH (10:08)
[2018-01-21] MEDS: Ascorbic Acid 500 MG Tablet PO SCH (10:09)
[2018-01-21] MEDS: Venlafaxine XR 75 MG Capsule PO SCH (10:09)
[2018-01-21] MEDS: Topiramate 25 MG Tablet PO SCH (10:10)
[2018-01-21] MEDS: Nadolol 40 MG Tablet PO SCH (10:11)
[2018-01-21] MEDS: Lisinopril 20 MG Tablet PO SCH (10:14)
[2018-01-21] MEDS: Insulin Detemir Inj 1,000 UNIT/10 ML Vial SQ SCH (10:15)
[2018-01-21] MEDS: Ferrous Sulfate 325 MG Tablet PO SCH ×2 (12:22→17:21)
[2018-01-21] MEDS ORDERED: Potassium Chloride 25 MEQ Effervescent Tablet PO ONE (12:30)
--- NOTE | 2018-01-21 12:45 | P.PNFP ---
Subjective Interval history: Hypoglycemic overnight at 43, he was given a snack at it recovered to 113 26 minutes later. He is ambulating around the room when we arrived. He does have some continued indigestion, however it is improved today. His bowel movements have been brown without any blood or black. He has had no further nausea, vomiting, fever, chills, lightheadedness, dizziness, chest pain, palpitations, or abdominal pain. He expresses desire and comfort with going home. <Deacon Morales - 01/21/18 14:51> Results - Labs Result diagrams: 01/21/18 04:17 01/21/18 13:56 <Jass Calloway - 01/22/18 14:20> Abnormal lab results 01/21/18 01/21/18 Range/Units 13:56 17:07 Potassium 3.4 L (3.5-5.1) meq/L Chloride 108 H (98-107) meq/L Estimated GFR 74 L (>89) mL/min POC Glucose 129 H (68-110) mg/dl Random Glucose 321 H D (74-106) mg/dL Calcium 7.7 L (8.5-10.1) mg/dL BMP 01/21/18 13:56 Sodium 142 Potassium 3.4 L Chloride 108 H Carbon Dioxide 27.7 BUN 13 Creatinine 1.02 Calcium 7.7 L <Jass Calloway - 01/22/18 14:20> Abnormal lab results 01/20/18 01/20/18 01/21/18 Range/Units 17:49 20:51 03:40 RBC (4.50-5.90) mil/mm3 Hgb (13.0-17.0) gm/dL Hct (39.0-51.0) % Sodium (136-145) meq/L Potassium (3.5-5.1) meq/L Chloride (98-107) meq/L POC Glucose 283 H 254 H 43 L* (68-110) mg/dl Calcium (8.5-10.1) mg/dL 01/21/18 01/21/18 01/21/18 Range/Units 04:06 04:17 04:17 RBC 2.46 L (4.50-5.90) mil/mm3 Hgb 8.4 L (13.0-17.0) gm/dL Hct 23.5 L (39.0-51.0) % Sodium 146 H (136-145) meq/L Potassium 2.7 L* (3.5-5.1) meq/L Chloride 110 H (98-107) meq/L POC Glucose 113 H (68-110) mg/dl Calcium 8.1 L (8.5-10.1) mg/dL 01/21/18 Range/Units 07:56 RBC (4.50-5.90) mil/mm3 Hgb (13.0-17.0) gm/dL Hct (39.0-51.0) % Sodium (136-145) meq/L Potassium (3.5-5.1) meq/L Chloride (98-107) meq/L POC Glucose 200 H (68-110) mg/dl Calcium (8.5-10.1) mg/dL Short CBC 01/21/18 Range/Units 04:17 WBC 8.7 (4.0-11.0) th/mm3 Hgb 8.4 L (13.0-17.0) gm/dL Hct 23.5 L (39.0-51.0) % Plt Count 150 (150-450) th/mm3 BMP 01/21/18 04:17 Sodium 146 H Potassium 2.7 L* Chloride 110 H Carbon Dioxide 28.7 BUN 12 Creatinine 0.74 Calcium 8.1 L <Deacon Morales - 01/21/18 12:44> Physical Exam Vital signs: Vital Signs 01/21/18 16:00 Temperature 98.0 F Pulse Rate 88 Respiratory Rate 17 Blood Pressure 97/57 L Pulse Oximetry 97 Intake & Output 01/21/18 01/22/18 01/22/18 18:59 06:59 18:59 Intake Total 1460 / 1460 Balance 1460 / 1460 Intake: IV 500 / 500 SandoSTATIN Inj 500 MCG In NS 500 / 500 Inj 500 ML @ 25 MCG/HR 25.02 mls/hr IV.CONT .Q20H1M [facility] Rx#: [id number] Oral 960 / 960 Other: # Voids 3 # Bowel Movements 4 <Jass Calloway - 01/22/18 14:20> Vital Signs 01/20/18 16:00 01/20/18 20:00 01/21/18 00:00 Temperature 99.3 F 96.7 F L 100 F H Pulse Rate 83 87 81 Respiratory Rate 17 18 21 Blood Pressure 113/59 L 107/55 L 140/62 Pulse Oximetry 93 L 98 92 L 01/21/18 04:00 01/21/18 08:00 Temperature 97.1 F L 97.1 F L Pulse Rate 73 72 Respiratory Rate 20 17 Blood Pressure 142/67 H 104/51 L Pulse Oximetry 96 94 L Intake & Output 01/20/18 01/21/18 01/21/18 18:59 06:59 18:59 Intake Total 720.5 / 720.5 1760.5 / 1760.5 500 / 500 Balance 720.5 / 720.5 1760.5 / 1760.5 500 / 500 Weight 118 kg Intake: IV 720.5 / 720.5 1280.5 / 1280.5 500 / 500 SandoSTATIN Inj 500 MCG In NS 720.5 / 720.5 280.5 / 280.5 500 / 500 Inj 500 ML @ 25 MCG/HR 25.02 mls/hr IV.CONT .Q20H1M [facility] Rx#: [id number] Oral 480 / 480 Other: Post Void Residual 4 # Voids 3 Date of Last Bowel Movement 01/20/18 # Bowel Movements 1 <Deacon Morales - 01/21/18 12:44> Narrative: General: Well-developed, alert, and in no acute distress. Skin: Warm and dry HEENT: Atraumatic, moist mucous membranes, poor dentition Neck: Supple, non-tender without masses or lymphadenopathy, trachea midline Cardiac: Regular rate and rhythm without murmur or gallops Pulmonary: Non-labored breathing. Lungs clear to auscultation bilaterally with good air movement Abdomen: Obese abdomen. 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 Hemoglobin 9.1 on admission, currently 8.4 and stable. Gastroenterology was consulted. He was transfused 2 units of PRBCs. He is now status post colonoscopy and endoscopy. 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 -Hemoglobin has been stable -Oral iron and vitamin C supplementation to improve absorption -Switch to daily p.o. Protonix (2) Anemia Code(s): D64.9 - Anemia, unspecified Status: Acute Plan: See plan for GI bleed above (3) Hypokalemia Code(s): E87.6 - Hypokalemia Status: Acute Plan: Potassium this morning of 2.7. Replaced with p.o. potassium. He is on Lasix and does have chronic hypokalemia. He had been taking 40 mg of p.o. potassium every other day and 20 mg of p.o. potassium every other day. -Repeat potassium ordered for 1400 -If potassium levels acceptable at that time discharge is likely -Increase home potassium dose to 40 mg p.o. daily (4) Diabetes Code(s): E11.9 - Type 2 diabetes mellitus without complications Status: Chronic Plan: He was hypoglycemic last night at 43, increased to 113 26 minutes later with a snack -Continue twice daily Levemir, 35 units -Continue high-dose sliding scale insulin (5) Hypothyroid Code(s): E03.9 - Hypothyroidism, unspecified Status: Acute Plan: History of hypothyroidism. 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 Used to take testosterone outpatient until recent CVA. -Outpatient testosterone held (7) Hypertension Code(s): I10 - Essential (primary) hypertension Status: Acute Plan: History of hypertension -Continue lisinopril 40 mg daily -Discontinue amlodipine due to mild hypotension -Nadolol started per GI (discontinue carvedilol) -Discontinue continue Lasix due to hypokalemia -Needs close outpatient follow-up with his primary care doctor due to the changing of his medications (8) Dyslipidemia Code(s): E78.5 - Hyperlipidemia, unspecified Status: Acute Plan: Continue Atorvastatin 40mg daily (9) Depression Code(s): F32.9 - Major depressive disorder, single episode, unspecified Status : Acute Plan: History of depression. -Continue home medications, venlafaxine 150 mg, mirtazapine 30 mg <Deacon Morales - 01/21/18 14:51> - Assessment and Plan Fluids: Adequate p.o. intake Electrolytes: monitor and replete as needed Nutrition: Regular diet GI prophylaxis: not indicated VTE prophylaxis: Bilateral SCDs, pharmacologic prophylaxis contraindicated due to recent bleeding Disposition: discharge pending repeat K+ levels <Deacon Morales - 01/21/18 14:52> - Attending Attestation See the residents documentation for details. I saw and evaluated the patient regarding the vogel portions of this evaluation and agree with the residents findings and plans as written. Parts of this note were created using [employer] voice recognition software program. While efforts were made to correct any mistakes made by this software, some mistakes, errors, and omissions may remain in the final note that were not caught when the note was originally created. Plan of care was discussed and agreed upon with the patient as specifically documented in the above note. An opportunity to ask questions with explanation was provided. Patient voiced understanding on all information reviewed and discussed. <Jass Calloway - 01/22/18 14:20>
[2018-01-21 15:04] LABS: Calcium 7.7 mg/dL (8.5-10.1); Carbon Dioxide 27.7 meq/L (21.0-32.0); Potassium 3.4 meq/L (3.5-5.1)
--- NOTE | 2018-01-22 02:08 | P.DS ---
Date of admission: 01/17/18 12:22 Primary care physician: [facility] Brief History from admission: Patient is a 62-year-old male with past history of diabetes, depression, hypothyroid, migraine, CVA, female to male transition who presented to the ER today for dizziness. Patient reports he has had dizziness as well as a general fatigue since 2 weeks prior to his stroke on 12/24. Patient reports earlier this morning he passed a bowel movement which was soft, slightly liquidy. He notes he became nauseous and vomited. He noted blood in his vomit. He denies any black or bloody stools. No abdominal pain, chest pain, difficulty swallowing, pain on swallowing. He was dizzy following the vomiting and believed he needed to come to the hospital. He notes he did not take his daily insulin today as he did not eat breakfast. He reports increased urinary frequency, however no urinary pain or change in urine color. He denies vaginal bleeding, vaginal discharge. Reports he is currently postmenopausal. Patient denies fever, chills, chest pain, shortness of breath, left arm or jaw pain, headache, change in vision, focal weakness, increased dysarthria. Patient reports after his last stroke he did have mild dysarthria which had nearly completely resolved. 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 Status: Acute (7) Hypertension Status: Acute (8) Dyslipidemia Status: Acute (9) Depression Status: Acute DS: Medications - Discharge Medications Prescriptions: nadolol 40 mg PO DAILY #30 tab potassium chloride 40 meq PO DAILY #28 tab DS: Summary - Time Spent with Patient Total time spent providing and/or coordinating discharge services: - Quality: VTE Deep Vein Thrombosis/Pulmonary Embolism Present on Admission: No Exam Vital signs: Vital Signs 01/21/18 04:00 01/21/18 08:00 01/21/18 12:00 Temperature 97.1 F L 97.1 F L 97.9 F Pulse Rate 73 72 87 Respiratory Rate 20 17 17 Blood Pressure 142/67 H 104/51 L 109/65 Pulse Oximetry 96 94 L 99 01/21/18 16:00 Temperature 98.0 F Pulse Rate 88 Respiratory Rate 17 Blood Pressure 97/57 L Pulse Oximetry 97 Intake & Output 01/21/18 01/21/18 01/22/18 06:59 18:59 06:59 Intake Total 1760.5 / 1760.5 1460 / 1460 Balance 1760.5 / 1760.5 1460 / 1460 Weight 118 kg Intake: IV 1280.5 / 1280.5 500 / 500 SandoSTATIN Inj 500 MCG In NS 280.5 / 280.5 500 / 500 Inj 500 ML @ 25 MCG/HR 25.02 mls/hr IV.CONT .Q20H1M [facility] Rx#: [id number] Oral 480 / 480 960 / 960 Other: # Voids 3 3 Date of Last Bowel Movement 01/20/18 # Bowel Movements 1 4 Results Labs on day of discharge: Labs from last 24 hours 01/21/18 01/21/18 01/21/18 17:07 13:56 11:57 WBC RBC Hgb Hct MCV MCH MCHC RDW Plt Count MPV Sodium 142 Potassium 3.4 L Chloride 108 H Carbon Dioxide 27.7 Anion Gap 6 BUN 13 Creatinine 1.02 Estimated GFR 74 L POC Glucose 129 H Pending Random Glucose 321 H D Calcium 7.7 L 01/21/18 01/21/18 01/21/18 07:56 04:17 04:17 WBC 8.7 RBC 2.46 L Hgb 8.4 L Hct 23.5 L MCV 95.5 MCH 34.0 MCHC 35.6 RDW 15.7 Plt Count 150 MPV 8.4 Sodium 146 H Potassium 2.7 L* Chloride 110 H Carbon Dioxide 28.7 Anion Gap 7 BUN 12 Creatinine 0.74 Estimated GFR Greater than 89 POC Glucose 200 H Random Glucose 75 Calcium 8.1 L 01/21/18 01/21/18 04:06 03:40 WBC RBC Hgb Hct MCV MCH MCHC RDW Plt Count MPV Sodium Potassium Chloride Carbon Dioxide Anion Gap BUN Creatinine Estimated GFR POC Glucose 113 H 43 L* Random Glucose Calcium Preliminary micro results at discharge 01/17/18 07:45 Aerobic Blood Culture - Preliminary Blood - Peripheral No growth in 4 days Anaerobic Blood Culture - Preliminary No growth in 4 days 01/17/18 08:00 Aerobic Blood Culture - Preliminary Blood - Peripheral No growth in 4 days Anaerobic Blood Culture - Preliminary No growth in 4 days - Impressions ITS Impressions Chest X-Ray 01/17/18 07:43 CONCLUSION: No acute intrathoracic disease. Stable examination. Chest CTA 01/17/18 08:36 CONCLUSION: 1. No evidence of pulmonary embolus. 2. No focal or acute pulmonary infiltrates. Liver Ultrasound 01/18/18 00:00 CONCLUSION: 1. There is increased echogenicity throughout the liver parenchyma suggestive of fatty infiltration. No evidence of biliary tract obstruction. 2. Mild splenomegaly. Discharge Plan - Discharge Disposition Patient Disposition: Discharge Home - Discharge Condition Condition: Stable - Discharge Order Discharge Orders: Discharge Order (Routine); Ordered 01/21/18 Ordered By: Deacon Morales - Physicians Team Primary Care Provider: [facility] Attending Provider: Jass Calloway Other Providers: Rosemary Maciel MD
== END 2018-01-21 18:50 | disposition home or self-care (01) ==
LOC: NEPE 07:13 → NEDA 12:22 → N07 14:25
PROVIDERS: ADMIT Family Medicine; ATTEND Family Medicine
PROC: COLONOS (2018-01-19 11:15)
PROC: PANENDO (2018-01-19 11:15)